=== PATIENT | male | born 1995 | race Caucasian/White ===

== ENCOUNTER 2018-02-02 15:45 | Inpatient (IN) | payer OTHER ==
--- NOTE | 2018-02-02 16:07 | ED ---
General Adult HPI - General Stated complaint: Abd.pain/vomiting Time Seen by Provider: 02/02/18 15:52 - History of Present Illness Initial comments: Mack Vinson is a 22-year-old morbidly obese male who presents to the ED from an outside facility for further management of acute DKA. Patient reports that for the past week he's been experiencing severe nausea, vomiting and inability tolerate any by mouth intake. Patient states that he's been feeling very thirsty but any time he drinks he vomits. He reports that today his mother became concerned because it had been a week of the symptoms so she called 911 and he was taken to an outside facility. Patient reports epigastric abdominal discomfort, no other abdominal pain. He denies any recent fevers, chills, chest pain or trouble breathing. He does not have a primary care physician, doesn't follow with a physician regularly and has no known medical diagnoses prior to today. Evaluation at the outside hospital revealed that he had an anion gap of 31, serum bicarb of 9, blood glucose of 388, a blood gas was not obtained but the diagnosis of DKA was made. 3.5 L of IV fluid were given and the patient was transferred to our facility via ambulance. - Related Data Home Medications Medication Instructions Recorded Confirmed No Known Home Medications [No 02/02/18 02/02/18 Known Home Medications] Allergies Allergy/AdvReac Type Severity Reaction Status Date / Time Penicillins Allergy Rash/Hives Verified 02/02/18 16:07 Review of Systems ROS Statement: Those systems with pertinent positive or pertinent negative responses have been documented in the HPI. ROS Other: All systems not noted in ROS Statement are negative. Constitutional: Reports: weakness Eyes: Denies: vision change ENT: Reports: other (dry mouth) Respiratory: Denies: dyspnea Cardiovascular: Denies: chest pain, palpitations Endocrine: Reports: fatigue Gastrointestinal: Reports: abdominal pain, nausea, vomiting Genitourinary: Reports: other (urine decreased). Denies: urgency, dysuria Musculoskeletal: Denies: back pain Skin: Denies: rash, lesions Neurological: Denies: headache, weakness Psychiatric: Denies: anxiety, depression Hematological/Lymphatic: Denies: easy bleeding, easy bruising General Exam Limitations: no limitations General appearance: alert, obese Head exam: Present: atraumatic, normocephalic Eye exam: Present: PERRL ENT exam: Present: other (dry mucous membranes) Neck exam: Present: normal inspection Respiratory exam: Present: other (Kussmal respirations) Cardiovascular Exam: Present: regular rate, tachycardia GI/Abdominal exam: Present: soft. Absent: distended, tenderness Rectal exam: Present: deferred Extremities exam: Present: other Neurological exam: Present: alert, oriented X3 Psychiatric exam: Present: normal affect, normal mood Skin exam: Present: mottled (upper extremities) Course Vital Signs 02/02/18 02/02/18 02/02/18 15:50 17:53 20:00 Temperature 97.9 F Pulse Rate 110 H 102 H 110 H Respiratory 20 20 17 Rate Blood Pressure 164/90 159/85 156/78 O2 Sat by Pulse 100 100 100 Oximetry Medical Decision Making - Medical Decision Making Patient was seen and evaluated, vital signs were reviewed. Patient is tachycardic and afebrile Patient is noted to be tachypneic, on evaluation he has small respirations History is obtained from the patient and review of outside medical record Outside labs were reviewed - anion gap 31, serum bicarb 9, glucose 388 Troponin, lipase were both negative at outside lab. Lactic acid was not drawn. CBC was significant for mild leukocytosis and a hemoglobin of 18 just likely hemoconcentration Metabolic panel was reviewed, no significant abnormalities, potassium was 4.1 The patient receives 3.5 L of normal saline prior to arrival in our emergency department Initial labs were drawn at 11:20 AM, repeat labs to be drawn at this time. Repeat labs again consistent with DKA Additional IVF ordered Patient care discussed with midlevel providers from ICU who accept patient to the ICU for Dr. Worthington care was discussed with medicine on-call Dr Rangel who accepts the patient to her service with a consult to ICU for management - Lab Data Result diagrams: 02/02/18 16:06 02/02/18 20:13 Lab Results 02/02/18 02/02/18 02/02/18 Range/Units 16:06 16:06 16:06 WBC 17.3 H (3.8-10.6) k/uL RBC 5.82 (4.30-5.90) m/uL Hgb 16.2 (13.0-17.5) gm/dL Hct 48.2 (39.0-53.0) % MCV 82.9 (80.0-100.0) fL MCH 27.8 (25.0-35.0) pg MCHC 33.5 (31.0-37.0) g/dL RDW 13.9 (11.5-15.5) % Plt Count 241 (150-450) k/uL Neutrophils % 82 % Lymphocytes % 11 % Monocytes % 6 % Eosinophils % 0 % Basophils % 0 % Neutrophils # 14.2 H (1.3-7.7) k/uL Lymphocytes # 1.8 (1.0-4.8) k/uL Monocytes # 1.0 (0-1.0) k/uL Eosinophils # 0.1 (0-0.7) k/uL Basophils # 0.0 (0-0.2) k/uL VBG pH (7.31-7.41) VBG pCO2 (37-51) mmHg VBG HCO3 (24-28) mmol/L Sodium 147 H (137-145) mmol/L Potassium 3.9 (3.5-5.1) mmol/L Chloride 115 H (98-107) mmol/L Carbon Dioxide <5 L* (22-30) mmol/L Anion Gap mmol/L BUN 6 L (9-20) mg/dL Creatinine 0.70 (0.66-1.25) mg/dL Est GFR (CKD-EPI)AfAm >90 (>60 ml/min/1.73 sqM) Est GFR (CKD-EPI)NonAf >90 (>60 ml/min/1.73 sqM) Glucose 287 H (74-99) mg/dL POC Glucose (mg/dL) (75-99) mg/dL POC Glu Byproducts Maker ID Osmolality 320 H (280-301) mosm/kg Plasma Lactic Acid Miki 1.3 (0.7-2.0) mmol/L Calcium 8.7 (8.4-10.2) mg/dL Phosphorus 2.9 (2.5-4.5) mg/dL Magnesium 1.8 (1.6-2.3) mg/dL Total Bilirubin 0.5 (0.2-1.3) mg/dL AST 41 (17-59) U/L ALT 63 (21-72) U/L Alkaline Phosphatase 136 H (38-126) U/L Total Protein 7.3 (6.3-8.2) g/dL Albumin 4.1 (3.5-5.0) g/dL Acetone, Qual Positive (Negative) 02/02/18 02/02/18 02/02/18 Range/Units 16:37 16:50 17:50 WBC (3.8-10.6) k/uL RBC (4.30-5.90) m/uL Hgb (13.0-17.5) gm/dL Hct (39.0-53.0) % MCV (80.0-100.0) fL MCH (25.0-35.0) pg MCHC (31.0-37.0) g/dL RDW (11.5-15.5) % Plt Count (150-450) k/uL Neutrophils % % Lymphocytes % % Monocytes % % Eosinophils % % Basophils % % Neutrophils # (1.3-7.7) k/uL Lymphocytes # (1.0-4.8) k/uL Monocytes # (0-1.0) k/uL Eosinophils # (0-0.7) k/uL Basophils # (0-0.2) k/uL VBG pH 7.05 L* (7.31-7.41) VBG pCO2 30 L (37-51) mmHg VBG HCO3 8 L* (24-28) mmol/L Sodium (137-145) mmol/L Potassium (3.5-5.1) mmol/L Chloride (98-107) mmol/L Carbon Dioxide (22-30) mmol/L Anion Gap mmol/L BUN (9-20) mg/dL Creatinine (0.66-1.25) mg/dL Est GFR (CKD-EPI)AfAm (>60 ml/min/1.73 sqM) Est GFR (CKD-EPI)NonAf (>60 ml/min/1.73 sqM) Glucose (74-99) mg/dL POC Glucose (mg/dL) 290 H 268 H (75-99) mg/dL POC Glu Byproducts Maker ID Rasheeda Rudolph Katie Osmolality (280-301) mosm/kg Plasma Lactic Acid Miki (0.7-2.0) mmol/L Calcium (8.4-10.2) mg/dL Phosphorus (2.5-4.5) mg/dL Magnesium (1.6-2.3) mg/dL Total Bilirubin (0.2-1.3) mg/dL AST (17-59) U/L ALT (21-72) U/L Alkaline Phosphatase (38-126) U/L Total Protein (6.3-8.2) g/dL Albumin (3.5-5.0) g/dL Acetone, Qual (Negative) Disposition Clinical Impression: DKA (diabetic ketoacidoses), Newly diagnosed diabetes Disposition: ADMITTED IP TO THIS HOSP Decision Time: 20:47 - Out of Hospital Transfer - Req. Specs Out of Hospital Transfer - Requested Specifics: Medical ICU
[2018-02-02 16:34] LABS: Basophils % (A) 0 %; Eosinophils # (A) 0.1 k/uL (0-0.7); Eosinophils % (A) 0 %; HCT 48.2 % (39.0-53.0); HGB 16.2 gm/dL (13.0-17.5); Lymphocytes # (A) 1.8 k/uL (1.0-4.8); Lymphocytes % (A) 11 %; MCH 27.8 pg (25.0-35.0); MCHC 33.5 g/dL (31.0-37.0); MCV 82.9 fL (80.0-100.0); Monocytes % (A) 6 %; Neutrophils # (A) 14.2 k/uL (1.3-7.7); Neutrophils % (A) 82 %; Platelet Count 241 k/uL (150-450); RBC 5.82 m/uL (4.30-5.90); RDW 13.9 % (11.5-15.5); WBC 17.3 k/uL (3.8-10.6)
[2018-02-02] MEDS ORDERED: ONDANSETRON 4 MG/2 ML VIAL IVP STA (16:40)
[2018-02-02] MEDS ORDERED: FAMOTIDINE 20 MG/2 ML VIAL IV STA (16:40)
[2018-02-02 16:41] LABS: Glucose,Whole Blood 290 mg/dL (75-99)
[2018-02-02] MEDS ORDERED: D5-0.45% NACL WITH KCL 20MEQ/L 1,000 ML IV ONE (16:45)
[2018-02-02] MEDS: SODIUM CHLORIDE 0.9% 1,000 ML IV SCH ×2 (16:51→23:07)
[2018-02-02 16:57] LABS: ALT 63 U/L (21-72); AST 41 U/L (17-59); Albumin 4.1 g/dL (3.5-5.0); Alkaline Phosphatase 136 U/L (38-126); Blood Urea Nitrogen 6 mg/dL (9-20); Calcium 8.7 mg/dL (8.4-10.2); Chloride 115 mmol/L (98-107); Glucose 287 mg/dL (74-99); Magnesium 1.8 mg/dL (1.6-2.3); Phosphorus 2.9 mg/dL (2.5-4.5); Potassium 3.9 mmol/L (3.5-5.1); Sodium 147 mmol/L (137-145); Total Bilirubin 0.5 mg/dL (0.2-1.3); Total Protein 7.3 g/dL (6.3-8.2)
[2018-02-02 16:58] LABS: VBG PH 7.05 (7.31-7.41)
[2018-02-02] MEDS: INSULIN REGULAR 100 UNIT in SODIUM CHLORIDE 0.9% 100 ML IV SCH (17:03)
[2018-02-02 17:28] LABS: Carbon Dioxide <5 mmol/L (22-30)
[2018-02-02] MEDS ORDERED: SODIUM CHLORIDE 0.9% 1,000 ML IV ONE (17:57)
[2018-02-02 17:58] LABS: Glucose,Whole Blood 268 mg/dL (75-99)
[2018-02-02 18:56] LABS: Glucose,Whole Blood 231 mg/dL (75-99)
[2018-02-02 20:05] LABS: Glucose,Whole Blood 215 mg/dL (75-99)
[2018-02-02 20:39] LABS: Blood Urea Nitrogen 5 mg/dL (9-20); Chloride 115 mmol/L (98-107); Glucose 159 mg/dL (74-99); Phosphorus 1.6 mg/dL (2.5-4.5); Potassium 3.4 mmol/L (3.5-5.1); Sodium 147 mmol/L (137-145)
[2018-02-02 20:45] LABS: Anion Gap 23 mmol/L
[2018-02-02 20:46] LABS: Carbon Dioxide 9 mmol/L (22-30)
[2018-02-02 21:01] LABS: Glucose,Whole Blood 162 mg/dL (75-99)
[2018-02-02] MEDS ORDERED: Potassium Replacement Protocol 1 EACH MISC MISCELLANE PRN (21:01)
[2018-02-02] MEDS ORDERED: Magnesium Replacement Protocol 1 EACH MISC MISCELLANE PRN (21:01)
[2018-02-02] MEDS ORDERED: NALOXONE 0.4 MG/ML 1 ML VIAL IV PRN (21:05)
[2018-02-02] MEDS ORDERED: ALPRAZolam 0.25 MG TAB PO PRN (21:05)
[2018-02-02] MEDS ORDERED: DOCUSATE 100 MG CAP PO PRN (21:05)
[2018-02-02] MEDS ORDERED: ACETAMINOPHEN TAB 325 MG TAB PO PRN (21:05)
--- NOTE | 2018-02-02 21:08 | P.HPIM ---
History of Present Illness H&P Date: 02/02/18 Chief Complaint: vomiting Patient is a 22-year-old male with a past medical history of morbid obesity who initially presented to [facility] with complaints of vomiting and abdominal pain. He underwent an extensive evaluation there. He was found to have DKA. He was given 3 L of IV fluids. He underwent a CT chest , abdomen, and pelvis which showed no acute process. He was transferred here for further monitoring and care. In the ER he was found to have a VBG with a pH of 7.05 and a bicarb of 8. Laboratory analysis again was consistent with DKA with a positive acetone, anion gap unable to be measured, and a blood sugar of 287. His given an additional liter of fluid. He was started on an insulin drip and placed on D5 half-normal saline with potassium. Dr. Worthington's group was spoke with and he will be admitted to the ICU. Patient seen and examined at bedside in the ER. He states that he started vomiting approximately one week ago. He was unable to hold any significant amounts of food or liquid down. He also had some diffuse abdominal pain which he is unable to quantify or describe for me but just states that it "aches". He also was having constipation with no bowel movement in 1 week. He did an [id number] laxative without relief. He states that he has had increased urinary frequency over the last 2 weeks. Every time he urinates but is only a small amount amount and he denies any dysuria. He also complains of increased thirst over the last 2 weeks. He states his appetite has been normal but he has lost approximately 50 pounds over 2 weeks' period of time. He states that he was working a lot outside. He has no personal history of diabetes but his mom is in insulin dependent diabetic. He would like to follow with her nurse practitioner on discharge which is Connie Bahena. He has not been hospitalized recently. He does not take any medications on a daily basis. He has not started or stopped any supplements. He denies any chest pain, shortness of breath, lightheadedness or dizziness, cough, cold, fever or flu. Review of Systems Positive: Vomiting, abdominal pain, urinary frequency, increased thirst Pertinent positives and negatives as discussed in HPI, a complete review of systems was performed and all other systems are negative. 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 No significant issues noted on an osteopathic structural exam other than those noted in the History and Physical/Consult. Vitals: Vital Signs Temp Pulse Resp BP Pulse Ox 02/02/18 20:00 110 H 17 156/78 100 02/02/18 17:53 102 H 20 159/85 100 02/02/18 15:50 97.9 F 110 H 20 164/90 100 Intake and Output 02/02/18 02/02/18 02/02/18 06:59 14:59 22:59 Intake Total 52.593 Balance 52.593 Intake: Intake, IV Titration 52.593 Amount Insulin Regular 100 unit 52.593 In Sodium Chloride 0.9% 100 ml @ 0.1 UNITS/KG/HR 16.58 mls/hr IV .Q6H6M [facility] Rx#:[id number] Other: Weight 164.2 kg General: non toxic, mild distress, appears at stated age, morbidly obese Derm: Multiple scratches over bilateral lower extremities no unusual ecchymoses , warm, dry Head: atraumatic, normocephalic, symmetric Eyes: EOMI, no lid lag, anicteric sclera, pupils equal round reactive to light ENT: Nose and ears atraumatic, no thrush, no pharyngeal erythema, poor dentition Neck: No thyromegaly, no cervical lymphadenopathy, trachea midline, supple Mouth: no lip lesion, dry mucous membranes Cardiovascular: S1S2 reg, no murmur, positive posterior tibial pulse bilateral, no edema, capillary refill less than 2 seconds Lungs: Decreased breath sounds bilaterally, no rhonchi, no rales , no accessory muscle use Abdominal: soft, nontender to palpation, no guarding, no appreciable organomegaly, normal bowel sounds Ext: no gross muscle atrophy, muscle strength 5 out of 5 in all 4 extremities grossly, no contractures, Neuro: CN II-XI grossly intact, light touch intact all 4 extremities, finger to nose within normal limits, Psych: Alert, oriented, flat affect Results CBC & Chem 7: 02/02/18 16:06 02/02/18 20:13 Labs: Abnormal Lab Results - Last 24 Hours (Table) 02/02/18 02/02/18 02/02/18 Range/Units 16:06 16:06 16:37 WBC 17.3 H (3.8-10.6) k/uL Neutrophils # 14.2 H (1.3-7.7) k/uL VBG pH (7.31-7.41) VBG pCO2 (37-51) mmHg VBG HCO3 (24-28) mmol/L Sodium 147 H (137-145) mmol/L Potassium (3.5-5.1) mmol/L Chloride 115 H (98-107) mmol/L Carbon Dioxide <5 L* (22-30) mmol/L BUN 6 L (9-20) mg/dL Glucose 287 H (74-99) mg/dL POC Glucose (mg/dL) 290 H (75-99) mg/dL Osmolality 320 H (280-301) mosm/kg Phosphorus (2.5-4.5) mg/dL Alkaline Phosphatase 136 H (38-126) U/L 02/02/18 02/02/18 02/02/18 Range/Units 16:50 17:50 18:55 WBC (3.8-10.6) k/uL Neutrophils # (1.3-7.7) k/uL VBG pH 7.05 L* (7.31-7.41) VBG pCO2 30 L (37-51) mmHg VBG HCO3 8 L* (24-28) mmol/L Sodium (137-145) mmol/L Potassium (3.5-5.1) mmol/L Chloride (98-107) mmol/L Carbon Dioxide (22-30) mmol/L BUN (9-20) mg/dL Glucose (74-99) mg/dL POC Glucose (mg/dL) 268 H 231 H (75-99) mg/dL Osmolality (280-301) mosm/kg Phosphorus (2.5-4.5) mg/dL Alkaline Phosphatase (38-126) U/L 02/02/18 02/02/18 Range/Units 20:03 20:13 WBC (3.8-10.6) k/uL Neutrophils # (1.3-7.7) k/uL VBG pH (7.31-7.41) VBG pCO2 (37-51) mmHg VBG HCO3 (24-28) mmol/L Sodium 147 H (137-145) mmol/L Potassium 3.4 L (3.5-5.1) mmol/L Chloride 115 H (98-107) mmol/L Carbon Dioxide 9 L* (22-30) mmol/L BUN 5 L (9-20) mg/dL Glucose 159 H (74-99) mg/dL POC Glucose (mg/dL) 215 H (75-99) mg/dL Osmolality (280-301) mosm/kg Phosphorus 1.6 L (2.5-4.5) mg/dL Alkaline Phosphatase (38-126) U/L Comments: EKG is reviewed by myself reveals sinus tachycardia at a rate of 110, normal axis, normal intervals, and no significant ST-T wave changes CT scan - abdomen: report reviewed CT scan - chest: report reviewed CT scan - pelvis: report reviewed Thrombosis Risk Factor Assmnt - DVT/VTE Prophylaxis DVT/VTE Prophylaxis: Pharmacologic Prophylaxis ordered Assessment and Plan Assessment: DKA with new onset diabetes -DKA protocol with insulin drip, IV fluids, and serial lytes/phosphorus/ magnesium -Capillary blood glucose every hour -Nothing by mouth except for ice chips -family living educator and dietitan consult Hypernatremia, due to dehydration -follow serial lytes - IV fluids Leukocytosis, likely reactive - CT chest, abd and plevis normal - follow CBC - monior for temperature - check UA , initial at outside hospital was negative. Morbid Obesity, BMI 49.1 - Continued outpatient weight loss Social stressors - no insurance - social work consult - will either need indigent funds at discharge or to be placed on rely-on R and rely-on N through [employer], will need Rx for needles/syringes as these are vials , DVT prophylaxis: Lovenox Discussed with: Patient, ED physician, ED nursing Anticipated discharge: 3-[address]: Home A total of 65 minutes was spent on the care of this complex patient more than 50 % of the time was spent in counseling and care coordination.
[2018-02-02 21:47] LABS: Glucose,Whole Blood 146 mg/dL (75-99)
[2018-02-02] MEDS: SODIUM PHOSPHATE 10 MMOL in SODIUM CHLORIDE 0.9% 250 ML IVPB SCH (23:07)
[2018-02-02] MEDS: POTASSIUM PHOSPHATE 10 MMOL in SODIUM CHLORIDE 0.9% 250 ML IV SCH (23:08)
[2018-02-02 23:19] LABS: Glucose,Whole Blood 154 mg/dL (75-99)
[2018-02-02 23:54] LABS: Glucose,Whole Blood 163 mg/dL (75-99)
[2018-02-03] MEDS: INSULIN REGULAR 100 UNIT in SODIUM CHLORIDE 0.9% 100 ML IV SCH ×5 (00:10→23:53)
[2018-02-03] MEDS: D5-0.45% NACL WITH KCL 20MEQ/L 1,000 ML IV SCH ×4 (00:12→20:03)
[2018-02-03] MEDS: SODIUM CHLORIDE 0.9% 1,000 ML IV SCH ×3 (00:14→13:31)
[2018-02-03 00:34] LABS: Anion Gap 23 mmol/L; Blood Urea Nitrogen 5 mg/dL (9-20); Chloride 116 mmol/L (98-107); Glucose 183 mg/dL (74-99); Phosphorus 1.9 mg/dL (2.5-4.5); Potassium 4.4 mmol/L (3.5-5.1); Sodium 145 mmol/L (137-145)
[2018-02-03 00:42] LABS: Carbon Dioxide 6 mmol/L (22-30)
[2018-02-03] MEDS: POTASSIUM PHOSPHATE 10 MMOL in SODIUM CHLORIDE 0.9% 250 ML IV SCH ×5 (00:56→12:41)
[2018-02-03 01:00] LABS: Glucose,Whole Blood 186 mg/dL (75-99)
[2018-02-03 01:01] LABS: Appearance,Urine Clear (Clear); Bacteria,Urine Rare /hpf; Bilirubin,Urine 1+ (Negative); Blood,Urine Small (Negative); Color,Urine Yellow; Glucose,Urine (UA) 3+ (Negative); Hyaline Casts,Urine 131 /lpf (0-2); Leukocyte Esterase,Urine Negative (Negative); Mucus,Urine Rare /hpf; Nitrite,Urine Negative (Negative); Protein,Urine 2+ (Negative); RBC,Urine <1 /hpf (0-5); Specific Gravity,Urine 1.019 (1.001-1.035); Squamous Epithelial Cell,Urine 1 /hpf (0-4); WBC,Urine 4 /hpf (0-5)
[2018-02-03 01:04] LABS: Ketones,Urine 4+ (Negative)
[2018-02-03 02:10] LABS: Glucose,Whole Blood 193 mg/dL (75-99)
[2018-02-03 02:25] LABS: Hemoglobin A1C 11.8 % (4.0-6.0)
[2018-02-03 02:59] LABS: Glucose,Whole Blood 187 mg/dL (75-99)
[2018-02-03 04:27] LABS: Glucose,Whole Blood 187 mg/dL (75-99)
[2018-02-03 04:29] LABS: Basophils % (A) 0 %; Eosinophils # (A) 0.3 k/uL (0-0.7); Eosinophils % (A) 2 %; Lymphocytes # (A) 2.7 k/uL (1.0-4.8); Lymphocytes % (A) 23 %; MCH 27.4 pg (25.0-35.0); MCHC 33.4 g/dL (31.0-37.0); MCV 81.9 fL (80.0-100.0); Monocytes # (A) 0.7 k/uL (0-1.0); Monocytes % (A) 6 %; Neutrophils # (A) 7.8 k/uL (1.3-7.7); Neutrophils % (A) 67 %; Platelet Count 191 k/uL (150-450); RBC 5.49 m/uL (4.30-5.90); RDW 14.1 % (11.5-15.5); WBC 11.7 k/uL (3.8-10.6)
[2018-02-03 04:41] LABS: Anion Gap 19 mmol/L; Blood Urea Nitrogen 5 mg/dL (9-20); Calcium 9.1 mg/dL (8.4-10.2); Carbon Dioxide 11 mmol/L (22-30); Chloride 114 mmol/L (98-107); Glucose 197 mg/dL (74-99); Magnesium 1.9 mg/dL (1.6-2.3); Phosphorus 1.6 mg/dL (2.5-4.5); Potassium 3.1 mmol/L (3.5-5.1); Sodium 144 mmol/L (137-145)
[2018-02-03] MEDS ORDERED: Phosphorus Replacement Protoco 1 EACH MISC MISCELLANE PRN (04:51)
[2018-02-03 05:19] LABS: Glucose,Whole Blood 202 mg/dL (75-99)
[2018-02-03] MEDS: POTASSIUM CHLORIDE ER 20 MEQ TAB.ER PO SCH ×5 (05:46→20:03)
[2018-02-03 06:18] LABS: Glucose,Whole Blood 162 mg/dL (75-99)
[2018-02-03 07:03] LABS: Glucose,Whole Blood 156 mg/dL (75-99)
[2018-02-03] MEDS: MAGNESIUM SULFATE-D5W PMX 1 GM in DEXTROSE/WATER 1 100ML.BAG IVPB SCH ×2 (07:09→08:58)
[2018-02-03 07:58] LABS: Glucose,Whole Blood 159 mg/dL (75-99)
[2018-02-03 08:06] LABS: Glucose,Whole Blood 157 mg/dL (75-99)
[2018-02-03] MEDS: ENOXAPARIN 40 MG/0.4 ML SYRINGE SQ SCH (08:58)
[2018-02-03] MEDS: PANTOPRAZOLE 40 MG TABLET PO SCH (08:59)
[2018-02-03 09:08] LABS: Glucose,Whole Blood 154 mg/dL (75-99)
[2018-02-03 09:13] LABS: Anion Gap 18 mmol/L; Blood Urea Nitrogen 5 mg/dL (9-20); Carbon Dioxide 13 mmol/L (22-30); Chloride 115 mmol/L (98-107); Glucose 165 mg/dL (74-99); Phosphorus 1.6 mg/dL (2.5-4.5); Potassium 3.1 mmol/L (3.5-5.1); Sodium 146 mmol/L (137-145)
[2018-02-03] MEDS ORDERED: POTASSIUM CHLORIDE ER 20 MEQ TAB.ER PO SCH (10:00)
[2018-02-03 10:02] LABS: Glucose,Whole Blood 166 mg/dL (75-99)
[2018-02-03 11:02] LABS: Glucose,Whole Blood 137 mg/dL (75-99)
[2018-02-03 12:04] LABS: Glucose,Whole Blood 148 mg/dL (75-99)
[2018-02-03 12:53] LABS: Anion Gap 15 mmol/L; Blood Urea Nitrogen 4 mg/dL (9-20); Carbon Dioxide 13 mmol/L (22-30); Chloride 114 mmol/L (98-107); Glucose 162 mg/dL (74-99); Phosphorus 1.8 mg/dL (2.5-4.5); Sodium 142 mmol/L (137-145)
[2018-02-03 13:13] LABS: Glucose,Whole Blood 159 mg/dL (75-99)
[2018-02-03 13:22] LABS: Potassium 4.2 mmol/L (3.5-5.1)
[2018-02-03 14:23] LABS: Glucose,Whole Blood 256 mg/dL (75-99)
--- NOTE | 2018-02-03 14:40 | P.CNPUL ---
History of Present Illness Consult date: 02/03/18 Requesting physician: Mimi Rodriguez Reason for consult: other (Critical care management) Chief complaint: Nausea, vomiting History of present illness: This is a very pleasant 22-year-old gentleman with no primary care physician. No past medical history. He is morbidly obese with a BMI of 50.8 kg/m. He had developed nausea and vomiting for 1 week's time. He was unable to keep even water down. Yesterday his mom became concerned and was taken to [facility]. He was found to have new onset diabetes with a blood glucose of 388. He was subsequently transferred here to the emergency room for further evaluation and treatment. His initial glucose was 287. Venous gases revealed a pH of 7.05, CO2 30, bicarbonate of 8. Electrolyte profile revealed sodium 147. Calcium 3.9 chloride 1:15 carbon dioxide less than 5 subsequent anion gap 23. Acetone was positive. He was initiated on the DKA protocol. He was transferred to the intensive care unit. He is seen there today in consultation. He is currently awake and alert in no acute distress. He is maintaining good O2 saturations of 200% on room air. He has not had any further nausea and vomiting. He is not tolerating diet just yet. He remains nothing by mouth. He is currently receiving D5 0.45 with 20 of KCl at 150 MLS per hour. He is on a insulin drip at 11.3 units per hour. Most recent lab results reveal a sodium of 142, potassium 4.2, chloride 114, carbon dioxide 13, anion gap 15. Creatinine is 0.48. Blood glucose 162. He remains on Lovenox for DVT prophylaxis. Protonix for GI prophylaxis. Review of Systems 14 point review of system was conducted. All negative other than as mentioned in HPI. 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 - Past Family History Mother Family Medical History: Diabetes Mellitus, Hypertension Medications and Allergies Home Medications Medication Instructions Recorded Confirmed Type No Known Home Medications [No 02/02/18 02/02/18 History Known Home Medications] Allergies Allergy/AdvReac Type Severity Reaction Status Date / Time Penicillins Allergy Rash/Hives Verified 02/02/18 16:07 Physical Exam Vitals: Vital Signs Temp Pulse Resp BP Pulse Ox 02/03/18 13:00 98.4 F 82 15 159/76 100 02/03/18 12:00 81 18 151/69 100 02/03/18 11:00 93 22 144/69 99 02/03/18 10:00 81 13 155/84 100 02/03/18 09:00 98 F 84 17 166/68 99 02/03/18 08:00 86 20 166/80 98 02/03/18 07:00 86 17 161/72 100 02/03/18 06:30 87 17 161/72 100 02/03/18 06:00 86 18 173/73 100 02/03/18 05:30 83 20 162/59 99 02/03/18 05:00 86 21 151/70 98 02/03/18 04:30 86 18 151/70 99 02/03/18 04:00 98.6 F 81 20 148/63 100 02/03/18 03:30 91 16 148/63 100 02/03/18 03:00 84 18 141/72 100 02/03/18 02:30 85 21 141/72 98 02/03/18 02:00 88 23 148/66 99 02/03/18 01:30 89 22 148/66 99 02/03/18 01:00 95 26 H 154/66 99 02/03/18 00:30 94 21 154/66 99 02/03/18 00:00 99.1 F 104 H 23 145/60 100 02/02/18 23:30 97 25 H 145/60 99 02/02/18 23:00 97 24 135/64 98 02/02/18 22:30 95 25 H 135/64 100 02/02/18 22:00 98.1 F 97 19 135/64 100 02/02/18 21:47 108 H 10 L 02/02/18 21:37 98.0 F 02/02/18 21:08 114 H 18 156/78 98 02/02/18 20:00 110 H 17 156/78 100 02/02/18 17:53 102 H 20 159/85 100 02/02/18 15:50 97.9 F 110 H 20 164/90 100 Intake and Output 02/02/18 02/03/18 02/03/18 22:59 06:59 14:59 Intake Total 77.481 3021.401 7224.229 Output Total 500 Balance 77.481 9904.244 0747.229 Intake: IV 1200 1050 D5-0.45% NaCl with KCl 1200 1050 20Meq/l 1,000 ml @ 150 mls/hr IV .Q6H40M [facility] Rx# :[id number] Intake, IV Titration 77.481 674.232 438.229 Amount Insulin Regular 100 unit 77.481 49.232 63.229 In Sodium Chloride 0.9% 100 ml @ 0.1 UNITS/KG/HR 16.58 mls/hr IV .Q6H6M [facility] Rx#:[id number] Potassium Phosphate 10 500 mmol In Sodium Chloride 0 .9% 250 ml @ 125 mls/hr IV Q2H [facility] Rx#:[id number] Potassium Phosphate 10 125 125 mmol In Sodium Chloride 0 .9% 250 ml @ 125 mls/hr IV Q2H [facility] Rx#:[id number] Potassium Phosphate 10 250 mmol In Sodium Chloride 0 .9% 250 ml @ 125 mls/hr IV Q2H [facility] Rx#:[id number] Output: Urine 500 Other: Voiding Method Urinal Toilet # Voids 1 Weight 164.2 kg 169.8 kg GENERAL EXAM: Morbidly obese. Alert, comfortable in no apparent distress. HEAD: Normocephalic. EYES: Normal reaction of pupils, equal size. NOSE: Clear with pink turbinates. THROAT: No erythema or exudates. NECK: No masses, no JVD. CHEST: No chest wall deformity. LUNGS: Equal air entry with no crackles, wheeze, rhonchi or dullness. CVS: S1 and S2 normal with no audible murmur, regular rhythm. ABDOMEN: No hepatosplenomegaly, normal bowel sounds, no guarding or rigidity. SPINE: No scoliosis or deformity SKIN: No rashes CENTRAL NERVOUS SYSTEM: No focal deficits, tone is normal in all 4 extremities. EXTREMITIES: There is no peripheral edema. No clubbing, no cyanosis. Peripheral pulses are intact. Results - Laboratory Findings CBC and BMP: 02/03/18 04:04 02/03/18 12:25 Abnormal lab findings: Abnormal Labs 02/02/18 02/02/18 02/02/18 16:06 16:06 16:06 WBC 17.3 H Neutrophils # 14.2 H VBG pH VBG pCO2 VBG HCO3 Sodium 147 H Potassium Chloride 115 H Carbon Dioxide <5 L* BUN 6 L Creatinine Glucose 287 H POC Glucose (mg/dL) Hemoglobin A1c 11.8 H Osmolality 320 H Phosphorus Alkaline Phosphatase 136 H Urine Protein Urine Glucose (UA) Urine Ketones Urine Blood Urine Bilirubin Urine Bacteria Hyaline Casts Urine Mucus 02/02/18 02/02/18 02/02/18 16:37 16:50 17:50 WBC Neutrophils # VBG pH 7.05 L* VBG pCO2 30 L VBG HCO3 8 L* Sodium Potassium Chloride Carbon Dioxide BUN Creatinine Glucose POC Glucose (mg/dL) 290 H 268 H Hemoglobin A1c Osmolality Phosphorus Alkaline Phosphatase Urine Protein Urine Glucose (UA) Urine Ketones Urine Blood Urine Bilirubin Urine Bacteria Hyaline Casts Urine Mucus 02/02/18 02/02/18 02/02/18 18:55 20:03 20:13 WBC Neutrophils # VBG pH VBG pCO2 VBG HCO3 Sodium 147 H Potassium 3.4 L Chloride 115 H Carbon Dioxide 9 L* BUN 5 L Creatinine Glucose 159 H POC Glucose (mg/dL) 231 H 215 H Hemoglobin A1c Osmolality Phosphorus 1.6 L Alkaline Phosphatase Urine Protein Urine Glucose (UA) Urine Ketones Urine Blood Urine Bilirubin Urine Bacteria Hyaline Casts Urine Mucus 02/02/18 02/02/18 02/02/18 20:58 21:46 23:09 WBC Neutrophils # VBG pH VBG pCO2 VBG HCO3 Sodium Potassium Chloride Carbon Dioxide BUN Creatinine Glucose POC Glucose (mg/dL) 162 H 146 H 154 H Hemoglobin A1c Osmolality Phosphorus Alkaline Phosphatase Urine Protein Urine Glucose (UA) Urine Ketones Urine Blood Urine Bilirubin Urine Bacteria Hyaline Casts Urine Mucus 02/02/18 02/03/18 02/03/18 23:53 00:16 00:42 WBC Neutrophils # VBG pH VBG pCO2 VBG HCO3 Sodium Potassium Chloride 116 H Carbon Dioxide 6 L* BUN 5 L Creatinine 0.60 L Glucose 183 H POC Glucose (mg/dL) 163 H Hemoglobin A1c Osmolality Phosphorus 1.9 L Alkaline Phosphatase Urine Protein 2+ H Urine Glucose (UA) 3+ H Urine Ketones 4+ H Urine Blood Small H Urine Bilirubin 1+ H Urine Bacteria Rare H Hyaline Casts 131 H Urine Mucus Rare H 02/03/18 02/03/18 02/03/18 00:58 02:07 02:58 WBC Neutrophils # VBG pH VBG pCO2 VBG HCO3 Sodium Potassium Chloride Carbon Dioxide BUN Creatinine Glucose POC Glucose (mg/dL) 186 H 193 H 187 H Hemoglobin A1c Osmolality Phosphorus Alkaline Phosphatase Urine Protein Urine Glucose (UA) Urine Ketones Urine Blood Urine Bilirubin Urine Bacteria Hyaline Casts Urine Mucus 02/03/18 02/03/18 02/03/18 04:04 04:04 04:25 WBC 11.7 H Neutrophils # 7.8 H VBG pH VBG pCO2 VBG HCO3 Sodium Potassium 3.1 L Chloride 114 H Carbon Dioxide 11 L BUN 5 L Creatinine 0.60 L Glucose 197 H POC Glucose (mg/dL) 187 H Hemoglobin A1c Osmolality Phosphorus 1.6 L Alkaline Phosphatase Urine Protein Urine Glucose (UA) Urine Ketones Urine Blood Urine Bilirubin Urine Bacteria Hyaline Casts Urine Mucus 02/03/18 02/03/18 02/03/18 05:06 06:17 07:02 WBC Neutrophils # VBG pH VBG pCO2 VBG HCO3 Sodium Potassium Chloride Carbon Dioxide BUN Creatinine Glucose POC Glucose (mg/dL) 202 H 162 H 156 H Hemoglobin A1c Osmolality Phosphorus Alkaline Phosphatase Urine Protein Urine Glucose (UA) Urine Ketones Urine Blood Urine Bilirubin Urine Bacteria Hyaline Casts Urine Mucus 02/03/18 02/03/18 02/03/18 07:57 08:04 08:08 WBC Neutrophils # VBG pH VBG pCO2 VBG HCO3 Sodium 146 H Potassium 3.1 L Chloride 115 H Carbon Dioxide 13 L BUN 5 L Creatinine 0.50 L Glucose 165 H POC Glucose (mg/dL) 159 H 157 H Hemoglobin A1c Osmolality Phosphorus 1.6 L Alkaline Phosphatase Urine Protein Urine Glucose (UA) Urine Ketones Urine Blood Urine Bilirubin Urine Bacteria Hyaline Casts Urine Mucus 02/03/18 02/03/18 02/03/18 09:06 10:00 11:00 WBC Neutrophils # VBG pH VBG pCO2 VBG HCO3 Sodium Potassium Chloride Carbon Dioxide BUN Creatinine Glucose POC Glucose (mg/dL) 154 H 166 H 137 H Hemoglobin A1c Osmolality Phosphorus Alkaline Phosphatase Urine Protein Urine Glucose (UA) Urine Ketones Urine Blood Urine Bilirubin Urine Bacteria Hyaline Casts Urine Mucus 02/03/18 02/03/18 02/03/18 12:03 12:25 13:12 WBC Neutrophils # VBG pH VBG pCO2 VBG HCO3 Sodium Potassium Chloride 114 H Carbon Dioxide 13 L BUN 4 L Creatinine 0.48 L Glucose 162 H POC Glucose (mg/dL) 148 H 159 H Hemoglobin A1c Osmolality Phosphorus 1.8 L Alkaline Phosphatase Urine Protein Urine Glucose (UA) Urine Ketones Urine Blood Urine Bilirubin Urine Bacteria Hyaline Casts Urine Mucus Assessment and Plan Assessment: Impression: #1 Diabetic ketoacidosis with new onset diabetes mellitus. #2 Anion gap lactic acidosis secondary to above. Acetone positive. Improved. #3 Hypernatremia secondary to dehydration. Recovered #4 Gastroparesis with nausea and vomiting secondary to above #5 Morbid obesity with a BMI of 50.8 kg/m Plan: The patient was seen and evaluated by Dr. Worthington. The patient is improved and is not having any further nausea and vomiting. His electrolyte disturbances are improving as well. He is on the DKA protocol. Currently on D5 0.45 with 20 KCl at 150 MLS per hour. Continue insulin drip. He could be transferred out of the intensive care unit once his anion gap is closed. He will need further education regarding his new onset diabetes mellitus. He will be transitioned to long-acting insulin with short-acting coverage. We will also need to follow up with a primary care physician closely in the outpatient setting. He is educated her regarding the importance of weight loss and medication compliance. In the interim we'll continue with his current medications. We will continue to follow and make further recommendations based on his clinical status. I, the cosigning physician, performed a history & physical examination of the patient. Lungs sounds are clear. Maintaining good O2 saturations in the 90s on room air. I discussed the assessment and plan of care with my nurse practitioner, Kiersten Calvillo. I attest to the above note as dictated by her. Time with Patient: Greater than 30
[2018-02-03 15:04] LABS: Glucose,Whole Blood 242 mg/dL (75-99)
[2018-02-03 15:08] VITALS: BMI 50.8
[2018-02-03 16:12] LABS: Glucose,Whole Blood 279 mg/dL (75-99)
--- NOTE | 2018-02-03 16:18 | P.PN ---
Subjective Progress Note Date: 02/03/18 Principal diagnosis: Vomiting DKA Symptoms have resolved, no further vomiting. Objective - Vital Signs Vital signs: Vital Signs Temp 98.4 F 02/03/18 13:00 Pulse 88 02/03/18 15:00 Resp 25 H 02/03/18 15:00 BP 170/68 02/03/18 15:00 Pulse Ox 100 02/03/18 15:00 Intake & Output 02/02/18 02/03/18 02/03/18 18:59 06:59 18:59 Intake Total 14.093 8285.028 0945.462 Output Total 500 Balance 14.093 1671.078 9024.462 Weight 164.2 kg 169.8 kg 169.8 kg Intake: IV 1200 1350 D5-0.45% NaCl with KCl 1200 1350 20Meq/l 1,000 ml @ 150 mls/hr IV .Q6H40M [facility] Rx# :[id number] Intake, IV Titration 14.093 737.620 444.462 Amount Insulin Regular 100 unit 14.093 112.620 69.462 In Sodium Chloride 0.9% 100 ml @ 0.1 UNITS/KG/HR 16.58 mls/hr IV .Q6H6M [facility] Rx#:[id number] Potassium Phosphate 10 500 mmol In Sodium Chloride 0 .9% 250 ml @ 125 mls/hr IV Q2H [facility] Rx#:[id number] Potassium Phosphate 10 125 125 mmol In Sodium Chloride 0 .9% 250 ml @ 125 mls/hr IV Q2H [facility] Rx#:[id number] Potassium Phosphate 10 250 mmol In Sodium Chloride 0 .9% 250 ml @ 125 mls/hr IV Q2H [facility] Rx#:[id number] Oral 240 Output: Urine 500 Other: Voiding Method Urinal Toilet # Voids 1 - Exam Constitutional: No acute distress, conversant, pleasant Eyes:Anicteric sclerae, moist conjunctiva, no lid-lag, PERRLA, ENMT: Oropharynx clear, no erythema, exudates Neck: Supple, FROM, no masses, or JVD, No carotid bruits, No thyromegaly Lungs: Clear to auscultation, Clear to percussion, Normal respiratory effort, no accessory muscle use Cardiovascular: Heart regular in rate and rhythm, No murmurs, gallops, or rubs, No peripheral edema Abdominal: Soft, Nontender, no guarding, rebound or rigidity, Normoactive bowel sounds, No hepatomegaly, No splenomegaly, No palpable mass Skin: Normal temperature, tone, texture, turgor, no induration, No subcutaneous nodules, No rash, lesions, No ulcers Extremities: No digital cyanosis, No clubbing, Pedal pulses intact and symmetrical, Radial pulses intact and symmetrical, No calf tenderness Psychiatric: Alert and oriented to person, place and time, appropriate affect, intact judgement Neuro: Muscles Strength 5/5 in all 4 extremities, Sensation to light touch grossly present throughout, Cranial nerves II-XII grossly intact, no focal sensory deficits - Labs CBC & Chem 7: 02/03/18 04:04 02/03/18 12:25 Labs: Abnormal Lab Results - Last 24 Hours (Table) 02/02/18 02/02/18 02/02/18 Range/Units 16:06 16:06 16:06 WBC 17.3 H (3.8-10.6) k/uL Neutrophils # 14.2 H (1.3-7.7) k/uL VBG pH (7.31-7.41) VBG pCO2 (37-51) mmHg VBG HCO3 (24-28) mmol/L Sodium 147 H (137-145) mmol/L Potassium (3.5-5.1) mmol/L Chloride 115 H (98-107) mmol/L Carbon Dioxide <5 L* (22-30) mmol/L BUN 6 L (9-20) mg/dL Creatinine (0.66-1.25) mg/dL Glucose 287 H (74-99) mg/dL POC Glucose (mg/dL) (75-99) mg/dL Hemoglobin A1c 11.8 H (4.0-6.0) % Osmolality 320 H (280-301) mosm/kg Phosphorus (2.5-4.5) mg/dL Alkaline Phosphatase 136 H (38-126) U/L Urine Protein (Negative) Urine Glucose (UA) (Negative) Urine Ketones (Negative) Urine Blood (Negative) Urine Bilirubin (Negative) Urine Bacteria (None) /hpf Hyaline Casts (0-2) /lpf Urine Mucus (None) /hpf 02/02/18 02/02/18 02/02/18 Range/Units 16:37 16:50 17:50 WBC (3.8-10.6) k/uL Neutrophils # (1.3-7.7) k/uL VBG pH 7.05 L* (7.31-7.41) VBG pCO2 30 L (37-51) mmHg VBG HCO3 8 L* (24-28) mmol/L Sodium (137-145) mmol/L Potassium (3.5-5.1) mmol/L Chloride (98-107) mmol/L Carbon Dioxide (22-30) mmol/L BUN (9-20) mg/dL Creatinine (0.66-1.25) mg/dL Glucose (74-99) mg/dL POC Glucose (mg/dL) 290 H 268 H (75-99) mg/dL Hemoglobin A1c (4.0-6.0) % Osmolality (280-301) mosm/kg Phosphorus (2.5-4.5) mg/dL Alkaline Phosphatase (38-126) U/L Urine Protein (Negative) Urine Glucose (UA) (Negative) Urine Ketones (Negative) Urine Blood (Negative) Urine Bilirubin (Negative) Urine Bacteria (None) /hpf Hyaline Casts (0-2) /lpf Urine Mucus (None) /hpf 02/02/18 02/02/18 02/02/18 Range/Units 18:55 20:03 20:13 WBC (3.8-10.6) k/uL Neutrophils # (1.3-7.7) k/uL VBG pH (7.31-7.41) VBG pCO2 (37-51) mmHg VBG HCO3 (24-28) mmol/L Sodium 147 H (137-145) mmol/L Potassium 3.4 L (3.5-5.1) mmol/L Chloride 115 H (98-107) mmol/L Carbon Dioxide 9 L* (22-30) mmol/L BUN 5 L (9-20) mg/dL Creatinine (0.66-1.25) mg/dL Glucose 159 H (74-99) mg/dL POC Glucose (mg/dL) 231 H 215 H (75-99) mg/dL Hemoglobin A1c (4.0-6.0) % Osmolality (280-301) mosm/kg Phosphorus 1.6 L (2.5-4.5) mg/dL Alkaline Phosphatase (38-126) U/L Urine Protein (Negative) Urine Glucose (UA) (Negative) Urine Ketones (Negative) Urine Blood (Negative) Urine Bilirubin (Negative) Urine Bacteria (None) /hpf Hyaline Casts (0-2) /lpf Urine Mucus (None) /hpf 02/02/18 02/02/18 02/02/18 Range/Units 20:58 21:46 23:09 WBC (3.8-10.6) k/uL Neutrophils # (1.3-7.7) k/uL VBG pH (7.31-7.41) VBG pCO2 (37-51) mmHg VBG HCO3 (24-28) mmol/L Sodium (137-145) mmol/L Potassium (3.5-5.1) mmol/L Chloride (98-107) mmol/L Carbon Dioxide (22-30) mmol/L BUN (9-20) mg/dL Creatinine (0.66-1.25) mg/dL Glucose (74-99) mg/dL POC Glucose (mg/dL) 162 H 146 H 154 H (75-99) mg/dL Hemoglobin A1c (4.0-6.0) % Osmolality (280-301) mosm/kg Phosphorus (2.5-4.5) mg/dL Alkaline Phosphatase (38-126) U/L Urine Protein (Negative) Urine Glucose (UA) (Negative) Urine Ketones (Negative) Urine Blood (Negative) Urine Bilirubin (Negative) Urine Bacteria (None) /hpf Hyaline Casts (0-2) /lpf Urine Mucus (None) /hpf 02/02/18 02/03/18 02/03/18 Range/Units 23:53 00:16 00:42 WBC (3.8-10.6) k/uL Neutrophils # (1.3-7.7) k/uL VBG pH (7.31-7.41) VBG pCO2 (37-51) mmHg VBG HCO3 (24-28) mmol/L Sodium (137-145) mmol/L Potassium (3.5-5.1) mmol/L Chloride 116 H (98-107) mmol/L Carbon Dioxide 6 L* (22-30) mmol/L BUN 5 L (9-20) mg/dL Creatinine 0.60 L (0.66-1.25) mg/dL Glucose 183 H (74-99) mg/dL POC Glucose (mg/dL) 163 H (75-99) mg/dL Hemoglobin A1c (4.0-6.0) % Osmolality (280-301) mosm/kg Phosphorus 1.9 L (2.5-4.5) mg/dL Alkaline Phosphatase (38-126) U/L Urine Protein 2+ H (Negative) Urine Glucose (UA) 3+ H (Negative) Urine Ketones 4+ H (Negative) Urine Blood Small H (Negative) Urine Bilirubin 1+ H (Negative) Urine Bacteria Rare H (None) /hpf Hyaline Casts 131 H (0-2) /lpf Urine Mucus Rare H (None) /hpf 02/03/18 02/03/18 02/03/18 Range/Units 00:58 02:07 02:58 WBC (3.8-10.6) k/uL Neutrophils # (1.3-7.7) k/uL VBG pH (7.31-7.41) VBG pCO2 (37-51) mmHg VBG HCO3 (24-28) mmol/L Sodium (137-145) mmol/L Potassium (3.5-5.1) mmol/L Chloride (98-107) mmol/L Carbon Dioxide (22-30) mmol/L BUN (9-20) mg/dL Creatinine (0.66-1.25) mg/dL Glucose (74-99) mg/dL POC Glucose (mg/dL) 186 H 193 H 187 H (75-99) mg/dL Hemoglobin A1c (4.0-6.0) % Osmolality (280-301) mosm/kg Phosphorus (2.5-4.5) mg/dL Alkaline Phosphatase (38-126) U/L Urine Protein (Negative) Urine Glucose (UA) (Negative) Urine Ketones (Negative) Urine Blood (Negative) Urine Bilirubin (Negative) Urine Bacteria (None) /hpf Hyaline Casts (0-2) /lpf Urine Mucus (None) /hpf 02/03/18 02/03/18 02/03/18 Range/Units 04:04 04:04 04:25 WBC 11.7 H (3.8-10.6) k/uL Neutrophils # 7.8 H (1.3-7.7) k/uL VBG pH (7.31-7.41) VBG pCO2 (37-51) mmHg VBG HCO3 (24-28) mmol/L Sodium (137-145) mmol/L Potassium 3.1 L (3.5-5.1) mmol/L Chloride 114 H (98-107) mmol/L Carbon Dioxide 11 L (22-30) mmol/L BUN 5 L (9-20) mg/dL Creatinine 0.60 L (0.66-1.25) mg/dL Glucose 197 H (74-99) mg/dL POC Glucose (mg/dL) 187 H (75-99) mg/dL Hemoglobin A1c (4.0-6.0) % Osmolality (280-301) mosm/kg Phosphorus 1.6 L (2.5-4.5) mg/dL Alkaline Phosphatase (38-126) U/L Urine Protein (Negative) Urine Glucose (UA) (Negative) Urine Ketones (Negative) Urine Blood (Negative) Urine Bilirubin (Negative) Urine Bacteria (None) /hpf Hyaline Casts (0-2) /lpf Urine Mucus (None) /hpf 02/03/18 02/03/18 02/03/18 Range/Units 05:06 06:17 07:02 WBC (3.8-10.6) k/uL Neutrophils # (1.3-7.7) k/uL VBG pH (7.31-7.41) VBG pCO2 (37-51) mmHg VBG HCO3 (24-28) mmol/L Sodium (137-145) mmol/L Potassium (3.5-5.1) mmol/L Chloride (98-107) mmol/L Carbon Dioxide (22-30) mmol/L BUN (9-20) mg/dL Creatinine (0.66-1.25) mg/dL Glucose (74-99) mg/dL POC Glucose (mg/dL) 202 H 162 H 156 H (75-99) mg/dL Hemoglobin A1c (4.0-6.0) % Osmolality (280-301) mosm/kg Phosphorus (2.5-4.5) mg/dL Alkaline Phosphatase (38-126) U/L Urine Protein (Negative) Urine Glucose (UA) (Negative) Urine Ketones (Negative) Urine Blood (Negative) Urine Bilirubin (Negative) Urine Bacteria (None) /hpf Hyaline Casts (0-2) /lpf Urine Mucus (None) /hpf 02/03/18 02/03/18 02/03/18 Range/Units 07:57 08:04 08:08 WBC (3.8-10.6) k/uL Neutrophils # (1.3-7.7) k/uL VBG pH (7.31-7.41) VBG pCO2 (37-51) mmHg VBG HCO3 (24-28) mmol/L Sodium 146 H (137-145) mmol/L Potassium 3.1 L (3.5-5.1) mmol/L Chloride 115 H (98-107) mmol/L Carbon Dioxide 13 L (22-30) mmol/L BUN 5 L (9-20) mg/dL Creatinine 0.50 L (0.66-1.25) mg/dL Glucose 165 H (74-99) mg/dL POC Glucose (mg/dL) 159 H 157 H (75-99) mg/dL Hemoglobin A1c (4.0-6.0) % Osmolality (280-301) mosm/kg Phosphorus 1.6 L (2.5-4.5) mg/dL Alkaline Phosphatase (38-126) U/L Urine Protein (Negative) Urine Glucose (UA) (Negative) Urine Ketones (Negative) Urine Blood (Negative) Urine Bilirubin (Negative) Urine Bacteria (None) /hpf Hyaline Casts (0-2) /lpf Urine Mucus (None) /hpf 02/03/18 02/03/18 02/03/18 Range/Units 09:06 10:00 11:00 WBC (3.8-10.6) k/uL Neutrophils # (1.3-7.7) k/uL VBG pH (7.31-7.41) VBG pCO2 (37-51) mmHg VBG HCO3 (24-28) mmol/L Sodium (137-145) mmol/L Potassium (3.5-5.1) mmol/L Chloride (98-107) mmol/L Carbon Dioxide (22-30) mmol/L BUN (9-20) mg/dL Creatinine (0.66-1.25) mg/dL Glucose (74-99) mg/dL POC Glucose (mg/dL) 154 H 166 H 137 H (75-99) mg/dL Hemoglobin A1c (4.0-6.0) % Osmolality (280-301) mosm/kg Phosphorus (2.5-4.5) mg/dL Alkaline Phosphatase (38-126) U/L Urine Protein (Negative) Urine Glucose (UA) (Negative) Urine Ketones (Negative) Urine Blood (Negative) Urine Bilirubin (Negative) Urine Bacteria (None) /hpf Hyaline Casts (0-2) /lpf Urine Mucus (None) /hpf 02/03/18 02/03/18 02/03/18 Range/Units 12:03 12:25 13:12 WBC (3.8-10.6) k/uL Neutrophils # (1.3-7.7) k/uL VBG pH (7.31-7.41) VBG pCO2 (37-51) mmHg VBG HCO3 (24-28) mmol/L Sodium (137-145) mmol/L Potassium (3.5-5.1) mmol/L Chloride 114 H (98-107) mmol/L Carbon Dioxide 13 L (22-30) mmol/L BUN 4 L (9-20) mg/dL Creatinine 0.48 L (0.66-1.25) mg/dL Glucose 162 H (74-99) mg/dL POC Glucose (mg/dL) 148 H 159 H (75-99) mg/dL Hemoglobin A1c (4.0-6.0) % Osmolality (280-301) mosm/kg Phosphorus 1.8 L (2.5-4.5) mg/dL Alkaline Phosphatase (38-126) U/L Urine Protein (Negative) Urine Glucose (UA) (Negative) Urine Ketones (Negative) Urine Blood (Negative) Urine Bilirubin (Negative) Urine Bacteria (None) /hpf Hyaline Casts (0-2) /lpf Urine Mucus (None) /hpf 02/03/18 02/03/18 02/03/18 Range/Units 14:22 15:03 16:10 WBC (3.8-10.6) k/uL Neutrophils # (1.3-7.7) k/uL VBG pH (7.31-7.41) VBG pCO2 (37-51) mmHg VBG HCO3 (24-28) mmol/L Sodium (137-145) mmol/L Potassium (3.5-5.1) mmol/L Chloride (98-107) mmol/L Carbon Dioxide (22-30) mmol/L BUN (9-20) mg/dL Creatinine (0.66-1.25) mg/dL Glucose (74-99) mg/dL POC Glucose (mg/dL) 256 H 242 H 279 H (75-99) mg/dL Hemoglobin A1c (4.0-6.0) % Osmolality (280-301) mosm/kg Phosphorus (2.5-4.5) mg/dL Alkaline Phosphatase (38-126) U/L Urine Protein (Negative) Urine Glucose (UA) (Negative) Urine Ketones (Negative) Urine Blood (Negative) Urine Bilirubin (Negative) Urine Bacteria (None) /hpf Hyaline Casts (0-2) /lpf Urine Mucus (None) /hpf Assessment and Plan Plan: -Acute DKA/new onset diabetes: Insulin drip Blood sugar checks every 1 hour BMP every 4 Currently AG is at 15 We'll start subcu insulin once gap closes -Morbid obesity: Advised to lose weight, eat healthy diet and exercise Nutrition consult -Essential hypertension: Blood pressure has been elevated since admission Start lisinopril 10 mg daily -DVT prophylaxis: Subcu Lovenox
[2018-02-03 16:19] LABS: Anion Gap 18 mmol/L; Blood Urea Nitrogen 4 mg/dL (9-20); Calcium 8.6 mg/dL (8.4-10.2); Carbon Dioxide 12 mmol/L (22-30); Chloride 110 mmol/L (98-107); Glucose 286 mg/dL (74-99); Phosphorus 1.4 mg/dL (2.5-4.5); Sodium 140 mmol/L (137-145)
[2018-02-03 16:26] LABS: Potassium 2.8 mmol/L (3.5-5.1)
[2018-02-03] MEDS ORDERED: POTASSIUM CHLORIDE ER 20 MEQ TAB.ER PO STA (16:57)
[2018-02-03] MEDS: LISINOPRIL 10 MG TAB PO SCH (17:03)
[2018-02-03 17:07] LABS: Glucose,Whole Blood 283 mg/dL (75-99)
[2018-02-03] MEDS: POTASSIUM CHLORIDE 20 MEQ in WATER FOR INJECTION 1 100ML.BAG IVPB SCH ×2 (17:14→23:50)
[2018-02-03 18:03] LABS: Glucose,Whole Blood 291 mg/dL (75-99)
[2018-02-03] MEDS: SODIUM PHOSPHATE 10 MMOL in SODIUM CHLORIDE 0.9% 250 ML IVPB SCH ×4 (18:06→23:51)
[2018-02-03 19:14] LABS: Glucose,Whole Blood 305 mg/dL (75-99)
[2018-02-03 19:59] LABS: Glucose,Whole Blood 293 mg/dL (75-99)
[2018-02-03 21:05] LABS: Glucose,Whole Blood 293 mg/dL (75-99)
[2018-02-03 21:47] LABS: Anion Gap 19 mmol/L; Blood Urea Nitrogen 5 mg/dL (9-20); Chloride 114 mmol/L (98-107); Glucose 288 mg/dL (74-99); Magnesium 2.1 mg/dL (1.6-2.3); Phosphorus 1.8 mg/dL (2.5-4.5); Potassium 4.2 mmol/L (3.5-5.1); Sodium 143 mmol/L (137-145)
[2018-02-03 21:57] LABS: Carbon Dioxide 10 mmol/L (22-30)
[2018-02-03 22:08] LABS: Glucose,Whole Blood 272 mg/dL (75-99)
[2018-02-03 23:48] LABS: Glucose,Whole Blood 217 mg/dL (75-99)
[2018-02-04 00:41] LABS: Glucose,Whole Blood 202 mg/dL (75-99)
[2018-02-04 01:33] LABS: Glucose,Whole Blood 213 mg/dL (75-99)
[2018-02-04 01:35] LABS: Anion Gap 16 mmol/L; Blood Urea Nitrogen 3 mg/dL (9-20); Calcium 8.6 mg/dL (8.4-10.2); Carbon Dioxide 15 mmol/L (22-30); Chloride 109 mmol/L (98-107); Glucose 210 mg/dL (74-99); Phosphorus 1.7 mg/dL (2.5-4.5); Potassium 3.1 mmol/L (3.5-5.1); Sodium 140 mmol/L (137-145)
[2018-02-04 02:30] LABS: Glucose,Whole Blood 231 mg/dL (75-99)
[2018-02-04 03:28] LABS: Glucose,Whole Blood 197 mg/dL (75-99)
[2018-02-04 04:38] LABS: Glucose,Whole Blood 149 mg/dL (75-99)
[2018-02-04] MEDS: D5-0.45% NACL WITH KCL 20MEQ/L 1,000 ML IV SCH (04:40)
[2018-02-04 05:06] LABS: Basophils % (A) 0 %; Eosinophils # (A) 0.4 k/uL (0-0.7); Eosinophils % (A) 4 %; HCT 43.2 % (39.0-53.0); HGB 15.2 gm/dL (13.0-17.5); Lymphocytes # (A) 2.9 k/uL (1.0-4.8); Lymphocytes % (A) 32 %; MCH 27.7 pg (25.0-35.0); MCHC 35.3 g/dL (31.0-37.0); MCV 78.4 fL (80.0-100.0); Monocytes # (A) 0.5 k/uL (0-1.0); Monocytes % (A) 6 %; Neutrophils # (A) 5.2 k/uL (1.3-7.7); Neutrophils % (A) 57 %; Platelet Count 196 k/uL (150-450); RBC 5.51 m/uL (4.30-5.90); WBC 9.2 k/uL (3.8-10.6)
[2018-02-04 05:15] LABS: Anion Gap 17 mmol/L; Blood Urea Nitrogen 3 mg/dL (9-20); Calcium 9.2 mg/dL (8.4-10.2); Carbon Dioxide 15 mmol/L (22-30); Chloride 109 mmol/L (98-107); Glucose 153 mg/dL (74-99); Phosphorus 1.5 mg/dL (2.5-4.5); Potassium 3.1 mmol/L (3.5-5.1); Sodium 141 mmol/L (137-145)
[2018-02-04 05:59] LABS: Glucose,Whole Blood 175 mg/dL (75-99)
[2018-02-04] MEDS: POTASSIUM PHOSPHATE 10 MMOL in SODIUM CHLORIDE 0.9% 250 ML IV SCH ×4 (06:20→19:13)
[2018-02-04] MEDS: INSULIN REGULAR 100 UNIT in SODIUM CHLORIDE 0.9% 100 ML IV SCH ×7 (06:46→23:59)
[2018-02-04 07:04] LABS: Glucose,Whole Blood 183 mg/dL (75-99)
[2018-02-04] MEDS: DEXTROSE 5% IN WATER 1,000 ML with POTASSIUM CHLORIDE 40 MEQ IV SCH ×4 (08:02→22:01)
[2018-02-04] MEDS: PANTOPRAZOLE 40 MG TABLET PO SCH (08:02)
[2018-02-04 08:03] LABS: Glucose,Whole Blood 220 mg/dL (75-99)
[2018-02-04] MEDS: POTASSIUM CHLORIDE ER 20 MEQ TAB.ER PO SCH ×2 (08:03→08:56)
[2018-02-04] MEDS: LISINOPRIL 10 MG TAB PO SCH (08:03)
[2018-02-04] MEDS: ENOXAPARIN 40 MG/0.4 ML SYRINGE SQ SCH (08:03)
[2018-02-04 09:19] LABS: Glucose,Whole Blood 279 mg/dL (75-99)
[2018-02-04 10:11] LABS: Glucose,Whole Blood 251 mg/dL (75-99)
[2018-02-04 11:14] LABS: Glucose,Whole Blood 243 mg/dL (75-99)
[2018-02-04 11:35] LABS: Anion Gap 17 mmol/L; Blood Urea Nitrogen 3 mg/dL (9-20); Calcium 9.1 mg/dL (8.4-10.2); Carbon Dioxide 17 mmol/L (22-30); Chloride 103 mmol/L (98-107); Glucose 262 mg/dL (74-99); Phosphorus 2.3 mg/dL (2.5-4.5); Potassium 3.6 mmol/L (3.5-5.1); Sodium 137 mmol/L (137-145)
--- NOTE | 2018-02-04 11:58 | P.PN ---
Subjective Progress Note Date: 02/04/18 Principal diagnosis: Vomiting DKA Patient is feeling okay, no nausea, vomiting or abdominal pain. Objective - Vital Signs Vital signs: Vital Signs Temp 98.1 F 02/04/18 08:00 Pulse 95 02/04/18 11:00 Resp 19 02/04/18 11:00 BP 152/76 02/04/18 11:00 Pulse Ox 96 02/04/18 11:00 Intake & Output 02/03/18 02/04/18 02/04/18 18:59 06:59 18:59 Intake Total 3093.037 4419.937 1513.05 Balance 3093.037 4419.937 1513.05 Weight 169.8 kg 172.3 kg Intake: IV 1800 2175 525 D5-0.45% NaCl with KCl 1800 1800 150 20Meq/l 1,000 ml @ 150 mls/hr IV .Q6H40M [facility] Rx# :[id number] Potassium Phosphate 10 125 375 mmol In Sodium Chloride 0 .9% 250 ml @ 125 mls/hr IV Q2H [facility] Rx#:[id number] Sodium Phosphate 10 mmol 250 In Sodium Chloride 0.9% 250 ml @ 125 mls/hr IVPB Q2H [facility] Rx#:[id number] Intake, IV Titration 813.037 444.937 628.05 Amount Dextrose 5% in Water 1, 600 000 ml @ 150 mls/hr IV . Q6H48M [facility] with Potassium Chloride 40 meq Rx#: [id number] Insulin Regular 100 unit 88.037 94.937 28.05 In Sodium Chloride 0.9% 100 ml @ 0.1 UNITS/KG/HR 16.58 mls/hr IV .Q6H6M [facility] Rx#:[id number] Potassium Chloride 20 meq 100 100 In Water For Injection 1 100ml.bag @ 50 mls/hr IVPB Q4HR [facility] Rx#: [id number] Potassium Phosphate 10 125 mmol In Sodium Chloride 0 .9% 250 ml @ 125 mls/hr IV Q2H [facility] Rx#:[id number] Potassium Phosphate 10 250 mmol In Sodium Chloride 0 .9% 250 ml @ 125 mls/hr IV Q2H [facility] Rx#:[id number] Sodium Phosphate 10 mmol 250 250 In Sodium Chloride 0.9% 250 ml @ 125 mls/hr IVPB Q2H [facility] Rx#:[id number] Oral 480 1800 360 Other: Voiding Method Toilet Toilet Toilet # Voids 1 0 0 # Bowel Movements 1 1 - Exam Constitutional: No acute distress, conversant, pleasant Eyes:Anicteric sclerae, moist conjunctiva, no lid-lag, PERRLA, ENMT: Oropharynx clear, no erythema, exudates Neck: Supple, FROM, no masses, or JVD, No carotid bruits, No thyromegaly Lungs: Clear to auscultation, Clear to percussion, Normal respiratory effort, no accessory muscle use Cardiovascular: Heart regular in rate and rhythm, No murmurs, gallops, or rubs, No peripheral edema Abdominal: Soft, Nontender, no guarding, rebound or rigidity, Normoactive bowel sounds, No hepatomegaly, No splenomegaly, No palpable mass Skin: Normal temperature, tone, texture, turgor, no induration, No subcutaneous nodules, No rash, lesions, No ulcers Extremities: No digital cyanosis, No clubbing, Pedal pulses intact and symmetrical, Radial pulses intact and symmetrical, No calf tenderness Psychiatric: Alert and oriented to person, place and time, appropriate affect, intact judgement Neuro: Muscles Strength 5/5 in all 4 extremities, Sensation to light touch grossly present throughout, Cranial nerves II-XII grossly intact, no focal sensory deficits - Labs CBC & Chem 7: 02/04/18 04:51 02/04/18 11:07 Labs: Abnormal Lab Results - Last 24 Hours (Table) 02/03/18 02/03/18 02/03/18 Range/Units 12:03 12:25 13:12 MCV (80.0-100.0) fL Potassium (3.5-5.1) mmol/L Chloride 114 H (98-107) mmol/L Carbon Dioxide 13 L (22-30) mmol/L BUN 4 L (9-20) mg/dL Creatinine 0.48 L (0.66-1.25) mg/dL Glucose 162 H (74-99) mg/dL POC Glucose (mg/dL) 148 H 159 H (75-99) mg/dL Phosphorus 1.8 L (2.5-4.5) mg/dL 02/03/18 02/03/18 02/03/18 Range/Units 14:22 15:03 15:56 MCV (80.0-100.0) fL Potassium 2.8 L* (3.5-5.1) mmol/L Chloride 110 H (98-107) mmol/L Carbon Dioxide 12 L (22-30) mmol/L BUN 4 L (9-20) mg/dL Creatinine 0.64 L (0.66-1.25) mg/dL Glucose 286 H (74-99) mg/dL POC Glucose (mg/dL) 256 H 242 H (75-99) mg/dL Phosphorus 1.4 L (2.5-4.5) mg/dL 02/03/18 02/03/18 02/03/18 Range/Units 16:10 17:06 18:01 MCV (80.0-100.0) fL Potassium (3.5-5.1) mmol/L Chloride (98-107) mmol/L Carbon Dioxide (22-30) mmol/L BUN (9-20) mg/dL Creatinine (0.66-1.25) mg/dL Glucose (74-99) mg/dL POC Glucose (mg/dL) 279 H 283 H 291 H (75-99) mg/dL Phosphorus (2.5-4.5) mg/dL 02/03/18 02/03/18 02/03/18 Range/Units 19:12 19:57 21:03 MCV (80.0-100.0) fL Potassium (3.5-5.1) mmol/L Chloride (98-107) mmol/L Carbon Dioxide (22-30) mmol/L BUN (9-20) mg/dL Creatinine (0.66-1.25) mg/dL Glucose (74-99) mg/dL POC Glucose (mg/dL) 305 H 293 H 293 H (75-99) mg/dL Phosphorus (2.5-4.5) mg/dL 02/03/18 02/03/18 02/03/18 Range/Units 21:17 22:07 23:46 MCV (80.0-100.0) fL Potassium (3.5-5.1) mmol/L Chloride 114 H (98-107) mmol/L Carbon Dioxide 10 L* (22-30) mmol/L BUN 5 L (9-20) mg/dL Creatinine 0.60 L (0.66-1.25) mg/dL Glucose 288 H (74-99) mg/dL POC Glucose (mg/dL) 272 H 217 H (75-99) mg/dL Phosphorus 1.8 L (2.5-4.5) mg/dL 02/04/18 02/04/18 02/04/18 Range/Units 00:39 01:05 01:31 MCV (80.0-100.0) fL Potassium 3.1 L (3.5-5.1) mmol/L Chloride 109 H (98-107) mmol/L Carbon Dioxide 15 L (22-30) mmol/L BUN 3 L (9-20) mg/dL Creatinine 0.50 L (0.66-1.25) mg/dL Glucose 210 H (74-99) mg/dL POC Glucose (mg/dL) 202 H 213 H (75-99) mg/dL Phosphorus 1.7 L (2.5-4.5) mg/dL 02/04/18 02/04/18 02/04/18 Range/Units 02:28 03:26 04:37 MCV (80.0-100.0) fL Potassium (3.5-5.1) mmol/L Chloride (98-107) mmol/L Carbon Dioxide (22-30) mmol/L BUN (9-20) mg/dL Creatinine (0.66-1.25) mg/dL Glucose (74-99) mg/dL POC Glucose (mg/dL) 231 H 197 H 149 H (75-99) mg/dL Phosphorus (2.5-4.5) mg/dL 02/04/18 02/04/18 02/04/18 Range/Units 04:51 04:51 05:57 MCV 78.4 L (80.0-100.0) fL Potassium 3.1 L (3.5-5.1) mmol/L Chloride 109 H (98-107) mmol/L Carbon Dioxide 15 L (22-30) mmol/L BUN 3 L (9-20) mg/dL Creatinine 0.50 L (0.66-1.25) mg/dL Glucose 153 H (74-99) mg/dL POC Glucose (mg/dL) 175 H (75-99) mg/dL Phosphorus 1.5 L (2.5-4.5) mg/dL 02/04/18 02/04/18 02/04/18 Range/Units 07:03 08:01 09:18 MCV (80.0-100.0) fL Potassium (3.5-5.1) mmol/L Chloride (98-107) mmol/L Carbon Dioxide (22-30) mmol/L BUN (9-20) mg/dL Creatinine (0.66-1.25) mg/dL Glucose (74-99) mg/dL POC Glucose (mg/dL) 183 H 220 H 279 H (75-99) mg/dL Phosphorus (2.5-4.5) mg/dL 02/04/18 02/04/18 02/04/18 Range/Units 10:08 11:07 11:12 MCV (80.0-100.0) fL Potassium (3.5-5.1) mmol/L Chloride (98-107) mmol/L Carbon Dioxide 17 L (22-30) mmol/L BUN 3 L (9-20) mg/dL Creatinine 0.45 L (0.66-1.25) mg/dL Glucose 262 H (74-99) mg/dL POC Glucose (mg/dL) 251 H 243 H (75-99) mg/dL Phosphorus 2.3 L (2.5-4.5) mg/dL Assessment and Plan Plan: -Acute DKA/new onset diabetes: Continue insulin drip NPO Blood sugar checks every 1 hour BMP every 4 AG still not closed. We'll start subcu insulin once gap closes -Morbid obesity: Advised to lose weight, eat healthy diet and exercise Nutrition consult -Essential hypertension: Blood pressure improved Continue lisinopril 10 mg daily -DVT prophylaxis: Subcu Lovenox
[2018-02-04 12:00] LABS: Glucose,Whole Blood 259 mg/dL (75-99)
[2018-02-04] MEDS ORDERED: POTASSIUM PHOSPHATE 10 MMOL in SODIUM CHLORIDE 0.9% 250 ML IV ONE (12:00)
[2018-02-04] MEDS ORDERED: POTASSIUM CHLORIDE ER 20 MEQ TAB.ER PO SCH (12:00)
--- NOTE | 2018-02-04 13:08 | P.PN ---
Subjective Progress Note Date: 02/04/18 This is a very pleasant 22-year-old gentleman with no primary care physician. No past medical history. He is morbidly obese with a BMI of 50.8 kg/m. He had developed nausea and vomiting for 1 week's time. He was unable to keep even water down. Yesterday his mom became concerned and was taken to [facility]. He was found to have new onset diabetes with a blood glucose of 388. He was subsequently transferred here to the emergency room for further evaluation and treatment. His initial glucose was 287. Venous gases revealed a pH of 7.05, CO2 30, bicarbonate of 8. Electrolyte profile revealed sodium 147. Calcium 3.9 chloride 1:15 carbon dioxide less than 5 subsequent anion gap 23. Acetone was positive. He was initiated on the DKA protocol. He was transferred to the intensive care unit. He is seen there today in consultation. He is currently awake and alert in no acute distress. He is maintaining good O2 saturations of 200% on room air. He has not had any further nausea and vomiting. He is not tolerating diet just yet. He remains nothing by mouth. He is currently receiving D5 0.45 with 20 of KCl at 150 MLS per hour. He is on a insulin drip at 11.3 units per hour. Most recent lab results reveal a sodium of 142, potassium 4.2, chloride 114, carbon dioxide 13, anion gap 15. Creatinine is 0.48. Blood glucose 162. He remains on Lovenox for DVT prophylaxis. Protonix for GI prophylaxis. On 02/04/2018, the patient remained on an insulin drip at 5 units an hour. The patient came in for an acute DKA. He was treated with an insulin drip and this morning the patient is still has a positive anion gap at 17 with a bicarb level of 15. I decided to continue with the insulin drip until evening and I'm hoping by that time the anion gap will close. Meanwhile the patient is tolerating diet. No nausea. No vomiting. No abdominal pain. No altered mentation. He is also on D5 half-normal with potassium at the rate of 150 mL an hour. No other significant events for the past 24 hours. The patient is quite comfortable in bed. Objective - Vital Signs Vital signs: Vital Signs Temp 98.1 F 02/04/18 08:00 Pulse 95 02/04/18 11:00 Resp 19 02/04/18 11:00 BP 152/76 02/04/18 11:00 Pulse Ox 96 02/04/18 11:00 Intake & Output 02/03/18 02/04/18 02/04/18 18:59 06:59 18:59 Intake Total 3093.037 4419.937 1539.363 Balance 3093.037 4419.937 1539.363 Weight 169.8 kg 172.3 kg Intake: IV 1800 2175 525 D5-0.45% NaCl with KCl 1800 1800 150 20Meq/l 1,000 ml @ 150 mls/hr IV .Q6H40M [facility] Rx# :[id number] Potassium Phosphate 10 125 375 mmol In Sodium Chloride 0 .9% 250 ml @ 125 mls/hr IV Q2H [facility] Rx#:[id number] Sodium Phosphate 10 mmol 250 In Sodium Chloride 0.9% 250 ml @ 125 mls/hr IVPB Q2H [facility] Rx#:[id number] Intake, IV Titration 813.037 444.937 654.363 Amount Dextrose 5% in Water 1, 600 000 ml @ 150 mls/hr IV . Q6H48M [facility] with Potassium Chloride 40 meq Rx#: [id number] Insulin Regular 100 unit 88.037 94.937 54.363 In Sodium Chloride 0.9% 100 ml @ 0.1 UNITS/KG/HR 16.58 mls/hr IV .Q6H6M [facility] Rx#:[id number] Potassium Chloride 20 meq 100 100 In Water For Injection 1 100ml.bag @ 50 mls/hr IVPB Q4HR [facility] Rx#: [id number] Potassium Phosphate 10 125 mmol In Sodium Chloride 0 .9% 250 ml @ 125 mls/hr IV Q2H [facility] Rx#:[id number] Potassium Phosphate 10 250 mmol In Sodium Chloride 0 .9% 250 ml @ 125 mls/hr IV Q2H [facility] Rx#:[id number] Sodium Phosphate 10 mmol 250 250 In Sodium Chloride 0.9% 250 ml @ 125 mls/hr IVPB Q2H [facility] Rx#:[id number] Oral 480 1800 360 Other: Voiding Method Toilet Toilet Toilet # Voids 1 0 0 # Bowel Movements 1 1 - Exam GENERAL EXAM: Morbidly obese. Alert, comfortable in no apparent distress. HEAD: Normocephalic. EYES: Normal reaction of pupils, equal size. NOSE: Clear with pink turbinates. THROAT: No erythema or exudates. NECK: No masses, no JVD. CHEST: No chest wall deformity. LUNGS: Equal air entry with no crackles, wheeze, rhonchi or dullness. CVS: S1 and S2 normal with no audible murmur, regular rhythm. ABDOMEN: No hepatosplenomegaly, normal bowel sounds, no guarding or rigidity. SPINE: No scoliosis or deformity SKIN: No rashes CENTRAL NERVOUS SYSTEM: No focal deficits, tone is normal in all 4 extremities. EXTREMITIES: There is no peripheral edema. No clubbing, no cyanosis. Peripheral pulses are intact. - Labs CBC & Chem 7: 02/04/18 04:51 02/04/18 11:07 Labs: Abnormal Lab Results - Last 24 Hours (Table) 02/03/18 02/03/18 02/03/18 Range/Units 12:25 13:12 14:22 MCV (80.0-100.0) fL Potassium (3.5-5.1) mmol/L Chloride 114 H (98-107) mmol/L Carbon Dioxide 13 L (22-30) mmol/L BUN 4 L (9-20) mg/dL Creatinine 0.48 L (0.66-1.25) mg/dL Glucose 162 H (74-99) mg/dL POC Glucose (mg/dL) 159 H 256 H (75-99) mg/dL Phosphorus 1.8 L (2.5-4.5) mg/dL 02/03/18 02/03/18 02/03/18 Range/Units 15:03 15:56 16:10 MCV (80.0-100.0) fL Potassium 2.8 L* (3.5-5.1) mmol/L Chloride 110 H (98-107) mmol/L Carbon Dioxide 12 L (22-30) mmol/L BUN 4 L (9-20) mg/dL Creatinine 0.64 L (0.66-1.25) mg/dL Glucose 286 H (74-99) mg/dL POC Glucose (mg/dL) 242 H 279 H (75-99) mg/dL Phosphorus 1.4 L (2.5-4.5) mg/dL 02/03/18 02/03/18 02/03/18 Range/Units 17:06 18:01 19:12 MCV (80.0-100.0) fL Potassium (3.5-5.1) mmol/L Chloride (98-107) mmol/L Carbon Dioxide (22-30) mmol/L BUN (9-20) mg/dL Creatinine (0.66-1.25) mg/dL Glucose (74-99) mg/dL POC Glucose (mg/dL) 283 H 291 H 305 H (75-99) mg/dL Phosphorus (2.5-4.5) mg/dL 02/03/18 02/03/18 02/03/18 Range/Units 19:57 21:03 21:17 MCV (80.0-100.0) fL Potassium (3.5-5.1) mmol/L Chloride 114 H (98-107) mmol/L Carbon Dioxide 10 L* (22-30) mmol/L BUN 5 L (9-20) mg/dL Creatinine 0.60 L (0.66-1.25) mg/dL Glucose 288 H (74-99) mg/dL POC Glucose (mg/dL) 293 H 293 H (75-99) mg/dL Phosphorus 1.8 L (2.5-4.5) mg/dL 02/03/18 02/03/18 02/04/18 Range/Units 22:07 23:46 00:39 MCV (80.0-100.0) fL Potassium (3.5-5.1) mmol/L Chloride (98-107) mmol/L Carbon Dioxide (22-30) mmol/L BUN (9-20) mg/dL Creatinine (0.66-1.25) mg/dL Glucose (74-99) mg/dL POC Glucose (mg/dL) 272 H 217 H 202 H (75-99) mg/dL Phosphorus (2.5-4.5) mg/dL 02/04/18 02/04/18 02/04/18 Range/Units 01:05 01:31 02:28 MCV (80.0-100.0) fL Potassium 3.1 L (3.5-5.1) mmol/L Chloride 109 H (98-107) mmol/L Carbon Dioxide 15 L (22-30) mmol/L BUN 3 L (9-20) mg/dL Creatinine 0.50 L (0.66-1.25) mg/dL Glucose 210 H (74-99) mg/dL POC Glucose (mg/dL) 213 H 231 H (75-99) mg/dL Phosphorus 1.7 L (2.5-4.5) mg/dL 02/04/18 02/04/18 02/04/18 Range/Units 03:26 04:37 04:51 MCV 78.4 L (80.0-100.0) fL Potassium (3.5-5.1) mmol/L Chloride (98-107) mmol/L Carbon Dioxide (22-30) mmol/L BUN (9-20) mg/dL Creatinine (0.66-1.25) mg/dL Glucose (74-99) mg/dL POC Glucose (mg/dL) 197 H 149 H (75-99) mg/dL Phosphorus (2.5-4.5) mg/dL 02/04/18 02/04/18 02/04/18 Range/Units 04:51 05:57 07:03 MCV (80.0-100.0) fL Potassium 3.1 L (3.5-5.1) mmol/L Chloride 109 H (98-107) mmol/L Carbon Dioxide 15 L (22-30) mmol/L BUN 3 L (9-20) mg/dL Creatinine 0.50 L (0.66-1.25) mg/dL Glucose 153 H (74-99) mg/dL POC Glucose (mg/dL) 175 H 183 H (75-99) mg/dL Phosphorus 1.5 L (2.5-4.5) mg/dL 02/04/18 02/04/18 02/04/18 Range/Units 08:01 09:18 10:08 MCV (80.0-100.0) fL Potassium (3.5-5.1) mmol/L Chloride (98-107) mmol/L Carbon Dioxide (22-30) mmol/L BUN (9-20) mg/dL Creatinine (0.66-1.25) mg/dL Glucose (74-99) mg/dL POC Glucose (mg/dL) 220 H 279 H 251 H (75-99) mg/dL Phosphorus (2.5-4.5) mg/dL 02/04/18 02/04/18 02/04/18 Range/Units 11:07 11:12 11:59 MCV (80.0-100.0) fL Potassium (3.5-5.1) mmol/L Chloride (98-107) mmol/L Carbon Dioxide 17 L (22-30) mmol/L BUN 3 L (9-20) mg/dL Creatinine 0.45 L (0.66-1.25) mg/dL Glucose 262 H (74-99) mg/dL POC Glucose (mg/dL) 243 H 259 H (75-99) mg/dL Phosphorus 2.3 L (2.5-4.5) mg/dL Assessment and Plan Plan: Impression: #1 Diabetic ketoacidosis with new onset diabetes mellitus. The patient is on insulin drip. The patient has still a positive anion gap although improved yet this morning the 9 gap is at 17 with a bicarb level of 15. We'll continue the treatment for another 12 hours until his anion gap is closed. #2 Anion gap lactic acidosis secondary to above. Acetone positive. Improved. #3 Hypernatremia secondary to dehydration. Recovered #4 Gastroparesis with nausea and vomiting secondary to above #5 Morbid obesity with a BMI of 50.8 kg/m Plan Continue the insulin drip. Once the anion gap closes, the patient will be switched to Levemir insulin 52 units in addition to 17 units of NovoLog with meals every before meals and at bedtime along with a sliding scale coverage. We 'll continue to follow make further recommendations based on his progress. Until then, continue the insulin drip and monitor the blood sugars and keep the patient ICU.
[2018-02-04 13:13] LABS: Glucose,Whole Blood 261 mg/dL (75-99)
[2018-02-04 14:03] LABS: Glucose,Whole Blood 221 mg/dL (75-99)
[2018-02-04 15:01] LABS: Glucose,Whole Blood 228 mg/dL (75-99)
[2018-02-04 16:00] LABS: Anion Gap 15 mmol/L; Blood Urea Nitrogen 2 mg/dL (9-20); Calcium 9.1 mg/dL (8.4-10.2); Carbon Dioxide 18 mmol/L (22-30); Chloride 103 mmol/L (98-107); Glucose 209 mg/dL (74-99); Potassium 3.8 mmol/L (3.5-5.1); Sodium 136 mmol/L (137-145)
[2018-02-04 16:05] LABS: Glucose,Whole Blood 195 mg/dL (75-99)
[2018-02-04 17:08] LABS: Glucose,Whole Blood 177 mg/dL (75-99)
[2018-02-04 18:03] LABS: Glucose,Whole Blood 164 mg/dL (75-99)
[2018-02-04 20:04] LABS: Glucose,Whole Blood 160 mg/dL (75-99)
[2018-02-04 21:17] LABS: Glucose,Whole Blood 158 mg/dL (75-99)
[2018-02-04 22:04] LABS: Glucose,Whole Blood 151 mg/dL (75-99)
[2018-02-04 23:07] LABS: Glucose,Whole Blood 141 mg/dL (75-99)
[2018-02-05 00:11] LABS: Glucose,Whole Blood 143 mg/dL (75-99)
[2018-02-05 01:01] LABS: Glucose,Whole Blood 168 mg/dL (75-99)
[2018-02-05 02:10] LABS: Glucose,Whole Blood 174 mg/dL (75-99)
[2018-02-05 03:09] LABS: Glucose,Whole Blood 204 mg/dL (75-99)
[2018-02-05 04:27] LABS: Basophils % (A) 0 %; Eosinophils # (A) 0.3 k/uL (0-0.7); Eosinophils % (A) 5 %; HCT 41.5 % (39.0-53.0); HGB 14.4 gm/dL (13.0-17.5); Lymphocytes # (A) 2.1 k/uL (1.0-4.8); Lymphocytes % (A) 31 %; MCH 27.4 pg (25.0-35.0); MCHC 34.6 g/dL (31.0-37.0); MCV 79.2 fL (80.0-100.0); Mean Platelet Volume 9.9; Monocytes # (A) 0.4 k/uL (0-1.0); Monocytes % (A) 6 %; Neutrophils # (A) 3.8 k/uL (1.3-7.7); Neutrophils % (A) 56 %; Platelet Count 174 k/uL (150-450); RBC 5.24 m/uL (4.30-5.90); RDW 14.1 % (11.5-15.5); WBC 6.7 k/uL (3.8-10.6)
[2018-02-05 04:40] LABS: Anion Gap 15 mmol/L; Blood Urea Nitrogen 2 mg/dL (9-20); Calcium 9.3 mg/dL (8.4-10.2); Carbon Dioxide 20 mmol/L (22-30); Chloride 101 mmol/L (98-107); Glucose 201 mg/dL (74-99); Magnesium 1.7 mg/dL (1.6-2.3); Phosphorus 2.9 mg/dL (2.5-4.5); Potassium 3.5 mmol/L (3.5-5.1); Sodium 136 mmol/L (137-145)
[2018-02-05 05:21] LABS: Glucose,Whole Blood 203 mg/dL (75-99)
[2018-02-05] MEDS: POTASSIUM CHLORIDE ER 20 MEQ TAB.ER PO SCH ×2 (06:00→08:17)
[2018-02-05 06:09] LABS: Glucose,Whole Blood 211 mg/dL (75-99)
[2018-02-05] MEDS: MAGNESIUM SULFATE-D5W PMX 1 GM in DEXTROSE/WATER 1 100ML.BAG IVPB SCH ×2 (06:13→07:18)
[2018-02-05 07:03] LABS: Glucose,Whole Blood 225 mg/dL (75-99)
[2018-02-05 08:17] LABS: Glucose,Whole Blood 250 mg/dL (75-99)
[2018-02-05] MEDS: LISINOPRIL 10 MG TAB PO SCH (08:18)
[2018-02-05] MEDS: ENOXAPARIN 40 MG/0.4 ML SYRINGE SQ SCH (08:18)
[2018-02-05] MEDS: PANTOPRAZOLE 40 MG TABLET PO SCH (08:18)
[2018-02-05] MEDS: INSULIN REGULAR 100 UNIT in SODIUM CHLORIDE 0.9% 100 ML IV SCH (08:19)
[2018-02-05 09:13] LABS: Glucose,Whole Blood 224 mg/dL (75-99)
[2018-02-05 10:23] LABS: Glucose,Whole Blood 244 mg/dL (75-99)
--- NOTE | 2018-02-05 10:55 | P.PN ---
Subjective Progress Note Date: 02/05/18 Principal diagnosis: Acute diabetic ketoacidosis This is a very pleasant 22-year-old gentleman with no primary care physician. No past medical history. He is morbidly obese with a BMI of 50.8 kg/m. He had developed nausea and vomiting for 1 week's time. He was unable to keep even water down. Yesterday his mom became concerned and was taken to [facility]. He was found to have new onset diabetes with a blood glucose of 388. He was subsequently transferred here to the emergency room for further evaluation and treatment. His initial glucose was 287. Venous gases revealed a pH of 7.05, CO2 30, bicarbonate of 8. Electrolyte profile revealed sodium 147. Calcium 3.9 chloride 1:15 carbon dioxide less than 5 subsequent anion gap 23. Acetone was positive. He was initiated on the DKA protocol. He was transferred to the intensive care unit. He is seen there today in consultation. He is currently awake and alert in no acute distress. He is maintaining good O2 saturations of 200% on room air. He has not had any further nausea and vomiting. He is not tolerating diet just yet. He remains nothing by mouth. He is currently receiving D5 0.45 with 20 of KCl at 150 MLS per hour. He is on a insulin drip at 11.3 units per hour. Most recent lab results reveal a sodium of 142, potassium 4.2, chloride 114, carbon dioxide 13, anion gap 15. Creatinine is 0.48. Blood glucose 162. He remains on Lovenox for DVT prophylaxis. Protonix for GI prophylaxis. On 02/04/2018, the patient remained on an insulin drip at 5 units an hour. The patient came in for an acute DKA. He was treated with an insulin drip and this morning the patient is still has a positive anion gap at 17 with a bicarb level of 15. I decided to continue with the insulin drip until evening and I'm hoping by that time the anion gap will close. Meanwhile the patient is tolerating diet. No nausea. No vomiting. No abdominal pain. No altered mentation. He is also on D5 half-normal with potassium at the rate of 150 mL an hour. No other significant events for the past 24 hours. The patient is quite comfortable in bed. Reevaluated today on 02/05/2018, patient remains on insulin drip, he is also on D5W, sugars are running in the 200s range, his anion gap seems to be correcting nicely, today it is 15. Bicarb is 20 and it was less then 5 upon admission. Potassium is 3.5. BUN is 2 creatinine 0.40. CBC is relatively normal. Objective - Vital Signs Vital signs: Vital Signs Temp 97.8 F 02/05/18 08:00 Pulse 82 02/05/18 10:00 Resp 18 02/05/18 10:00 BP 151/68 02/05/18 10:00 Pulse Ox 97 02/05/18 10:00 Intake & Output 02/04/18 02/05/18 02/05/18 18:59 06:59 18:59 Intake Total 3392.363 1900 587.5 Output Total 0 1000 Balance 3392.363 900 587.5 Weight 172.1 kg Intake: IV 1375 1900 550 D5-0.45% NaCl with KCl 150 20Meq/l 1,000 ml @ 150 mls/hr IV .Q6H40M [facility] Rx# :[id number] Dextrose 5% in Water 1, 600 1800 450 000 ml @ 150 mls/hr IV . Q6H48M [facility] with Potassium Chloride 40 meq Rx#: [id number] Magnesium Sulfate-D5w Pmx 100 100 1 gm In Dextrose/Water 1 100ml.bag @ 100 mls/hr IVPB Q1H [facility] Rx#: [id number] Potassium Phosphate 10 375 mmol In Sodium Chloride 0 .9% 250 ml @ 125 mls/hr IV Q2H [facility] Rx#:[id number] Potassium Phosphate 10 250 mmol In Sodium Chloride 0 .9% 250 ml @ 125 mls/hr IV Q2H [facility] Rx#:[id number] Intake, IV Titration 1657.363 37.5 Amount Dextrose 5% in Water 1, 1050 000 ml @ 150 mls/hr IV . Q6H48M [facility]IE with Potassium Chloride 40 meq Rx#: [id number] Insulin Regular 100 unit 37.5 In Sodium Chloride 0.9% 100 ml @ 0.1 UNIT/HR 0.1 mls/hr IV .Q24H [facility] Rx#: [id number] Insulin Regular 100 unit 357.363 In Sodium Chloride 0.9% 100 ml @ 0.1 UNITS/KG/HR 16.58 mls/hr IV .Q6H6M [facility]IE Rx#:[id number] Potassium Phosphate 10 250 mmol In Sodium Chloride 0 .9% 250 ml @ 125 mls/hr IV ONCE ONE Rx#:[id number] Oral 360 Output: Urine 0 1000 Other: Voiding Method Toilet Toilet Toilet # Voids 0 0 # Bowel Movements 0 0 - Exam GENERAL EXAM: Morbidly obese. Alert, comfortable in no apparent distress. HEAD: Normocephalic. EYES: Normal reaction of pupils, equal size. NOSE: Clear with pink turbinates. THROAT: No erythema or exudates. NECK: No masses, no JVD. CHEST: No chest wall deformity. LUNGS: Equal air entry with no crackles, wheeze, rhonchi or dullness. CVS: S1 and S2 normal with no audible murmur, regular rhythm. ABDOMEN: No hepatosplenomegaly, normal bowel sounds, no guarding or rigidity. SPINE: No scoliosis or deformity SKIN: No rashes CENTRAL NERVOUS SYSTEM: No focal deficits, tone is normal in all 4 extremities. EXTREMITIES: There is no peripheral edema. No clubbing, no cyanosis. Peripheral pulses are intact. - Labs CBC & Chem 7: 02/05/18 04:08 02/05/18 04:08 Labs: Abnormal Lab Results - Last 24 Hours (Table) 02/04/18 02/04/18 02/04/18 Range/Units 11:07 11:12 11:59 MCV (80.0-100.0) fL Sodium (137-145) mmol/L Carbon Dioxide 17 L (22-30) mmol/L BUN 3 L (9-20) mg/dL Creatinine 0.45 L (0.66-1.25) mg/dL Glucose 262 H (74-99) mg/dL POC Glucose (mg/dL) 243 H 259 H (75-99) mg/dL Phosphorus 2.3 L (2.5-4.5) mg/dL 02/04/18 02/04/18 02/04/18 Range/Units 13:10 14:01 15:00 MCV (80.0-100.0) fL Sodium (137-145) mmol/L Carbon Dioxide (22-30) mmol/L BUN (9-20) mg/dL Creatinine (0.66-1.25) mg/dL Glucose (74-99) mg/dL POC Glucose (mg/dL) 261 H 221 H 228 H (75-99) mg/dL Phosphorus (2.5-4.5) mg/dL 02/04/18 02/04/18 02/04/18 Range/Units :18 16:03 17:07 MCV (80.0-100.0) fL Sodium 136 L (137-145) mmol/L Carbon Dioxide 18 L (22-30) mmol/L BUN 2 L (9-20) mg/dL Creatinine 0.42 L (0.66-1.25) mg/dL Glucose 209 H (74-99) mg/dL POC Glucose (mg/dL) 195 H 177 H (75-99) mg/dL Phosphorus 2.0 L (2.5-4.5) mg/dL 02/04/18 02/04/18 02/04/18 Range/Units 18:01 20:02 21:15 MCV (80.0-100.0) fL Sodium (137-145) mmol/L Carbon Dioxide (22-30) mmol/L BUN (9-20) mg/dL Creatinine (0.66-1.25) mg/dL Glucose (74-99) mg/dL POC Glucose (mg/dL) 164 H 160 H 158 H (75-99) mg/dL Phosphorus (2.5-4.5) mg/dL 02/04/18 02/04/18 02/05/18 Range/Units 22:02 23:05 00:10 MCV (80.0-100.0) fL Sodium (137-145) mmol/L Carbon Dioxide (22-30) mmol/L BUN (9-20) mg/dL Creatinine (0.66-1.25) mg/dL Glucose (74-99) mg/dL POC Glucose (mg/dL) 151 H 141 H 143 H (75-99) mg/dL Phosphorus (2.5-4.5) mg/dL 02/05/18 02/05/18 02/05/18 Range/Units 00:57 02:09 03:07 MCV (80.0-100.0) fL Sodium (137-145) mmol/L Carbon Dioxide (22-30) mmol/L BUN (9-20) mg/dL Creatinine (0.66-1.25) mg/dL Glucose (74-99) mg/dL POC Glucose (mg/dL) 168 H 174 H 204 H (75-99) mg/dL Phosphorus (2.5-4.5) mg/dL 02/05/18 02/05/18 02/05/18 Range/Units 04:08 04:08 05:19 MCV 79.2 L (80.0-100.0) fL Sodium 136 L (137-145) mmol/L Carbon Dioxide 20 L (22-30) mmol/L BUN 2 L (9-20) mg/dL Creatinine 0.40 L (0.66-1.25) mg/dL Glucose 201 H (74-99) mg/dL POC Glucose (mg/dL) 203 H (75-99) mg/dL Phosphorus (2.5-4.5) mg/dL 02/05/18 02/05/18 02/05/18 Range/Units 06:07 07:02 08:15 MCV (80.0-100.0) fL Sodium (137-145) mmol/L Carbon Dioxide (22-30) mmol/L BUN (9-20) mg/dL Creatinine (0.66-1.25) mg/dL Glucose (74-99) mg/dL POC Glucose (mg/dL) 211 H 225 H 250 H (75-99) mg/dL Phosphorus (2.5-4.5) mg/dL 02/05/18 02/05/18 Range/Units 09:11 10:22 MCV (80.0-100.0) fL Sodium (137-145) mmol/L Carbon Dioxide (22-30) mmol/L BUN (9-20) mg/dL Creatinine (0.66-1.25) mg/dL Glucose (74-99) mg/dL POC Glucose (mg/dL) 224 H 244 H (75-99) mg/dL Phosphorus (2.5-4.5) mg/dL Assessment and Plan Assessment: #1 acute Diabetic ketoacidosis with new onset diabetes mellitus. The patient is on insulin drip. The patient has still a positive anion gap improving, and bicarb level is also improving. #2 Anion gap lactic acidosis secondary to above. Acetone positive. Improved. #3 Hypernatremia secondary to dehydration. Recovered #4 Gastroparesis with nausea and vomiting secondary to above #5 Morbid obesity with a BMI of 50.8 kg/m Recommendation: Continue insulin drip, continue to follow the DKA protocol, start feeding, we'll continue to follow closely. Will keep in the ICU for 24 hours. Time with Patient: Less than 30
[2018-02-05 11:15] LABS: Anion Gap 11 mmol/L; Blood Urea Nitrogen 2 mg/dL (9-20); Calcium 8.8 mg/dL (8.4-10.2); Carbon Dioxide 23 mmol/L (22-30); Chloride 100 mmol/L (98-107); Glucose 234 mg/dL (74-99); Phosphorus 2.4 mg/dL (2.5-4.5); Potassium 3.6 mmol/L (3.5-5.1); Sodium 134 mmol/L (137-145)
[2018-02-05] MEDS: DEXTROSE 5% IN WATER 1,000 ML with POTASSIUM CHLORIDE 40 MEQ IV SCH (11:53)
[2018-02-05] MEDS ORDERED: POTASSIUM CHLORIDE ER 20 MEQ TAB.ER PO SCH (12:00)
[2018-02-05 12:01] LABS: Glucose,Whole Blood 255 mg/dL (75-99)
--- NOTE | 2018-02-05 12:25 | P.PN ---
Subjective Progress Note Date: 02/05/18 Principal diagnosis: Vomiting DKA Patient is feeling okay, no nausea, vomiting or abdominal pain. Objective - Vital Signs Vital signs: Vital Signs Temp 97.8 F 02/05/18 08:00 Pulse 98 02/05/18 12:00 Resp 12 02/05/18 12:00 BP 128/70 02/05/18 12:00 Pulse Ox 97 02/05/18 12:00 Intake & Output 02/04/18 02/05/18 02/05/18 18:59 06:59 18:59 Intake Total 3392.363 1900 1394.075 Output Total 0 1000 Balance 3392.357 095 4818.075 Weight 172.1 kg Intake: IV 1375 1900 850 D5-0.45% NaCl with KCl 150 20Meq/l 1,000 ml @ 150 mls/hr IV .Q6H40M NAOMIE Rx# :[id number] Dextrose 5% in Water 1, 600 1800 750 000 ml @ 150 mls/hr IV . Q6H48M NAOMIE with Potassium Chloride 40 meq Rx#: [id number] Magnesium Sulfate-D5w Pmx 100 100 1 gm In Dextrose/Water 1 100ml.bag @ 100 mls/hr IVPB Q1H NAOMIE Rx#: [id number] Potassium Phosphate 10 375 mmol In Sodium Chloride 0 .9% 250 ml @ 125 mls/hr IV Q2H NAOMIE Rx#:[id number] Potassium Phosphate 10 250 mmol In Sodium Chloride 0 .9% 250 ml @ 125 mls/hr IV Q2H NAOMIE Rx#:[id number] Intake, IV Titration 1657.363 304.075 Amount Dextrose 5% in Water 1, 1050 000 ml @ 150 mls/hr IV . Q6H48M NAOMIE with Potassium Chloride 40 meq Rx#: [id number] Insulin Regular 100 unit 54.075 In Sodium Chloride 0.9% 100 ml @ 0.1 UNIT/HR 0.1 mls/hr IV .Q24H NAOMIE Rx#: [id number] Insulin Regular 100 unit 357.363 In Sodium Chloride 0.9% 100 ml @ 0.1 UNITS/KG/HR 16.58 mls/hr IV .Q6H6M NAOMIE Rx#:[id number] Potassium Phosphate 10 250 mmol In Sodium Chloride 0 .9% 250 ml @ 125 mls/hr IV ONCE ONE Rx#:[id number] Potassium Phosphate 10 250 mmol In Sodium Chloride 0 .9% 250 ml @ 125 mls/hr IV ONCE ONE Rx#:[id number] Oral 360 240 Output: Urine 0 1000 Other: Voiding Method Toilet Toilet Toilet # Voids 0 0 # Bowel Movements 0 0 0 - Exam Constitutional: No acute distress, conversant, pleasant Eyes:Anicteric sclerae, moist conjunctiva, no lid-lag, PERRLA, ENMT: Oropharynx clear, no erythema, exudates Neck: Supple, FROM, no masses, or JVD, No carotid bruits, No thyromegaly Lungs: Clear to auscultation, Clear to percussion, Normal respiratory effort, no accessory muscle use Cardiovascular: Heart regular in rate and rhythm, No murmurs, gallops, or rubs, No peripheral edema Abdominal: Soft, Nontender, no guarding, rebound or rigidity, Normoactive bowel sounds, No hepatomegaly, No splenomegaly, No palpable mass Skin: Normal temperature, tone, texture, turgor, no induration, No subcutaneous nodules, No rash, lesions, No ulcers Extremities: No digital cyanosis, No clubbing, Pedal pulses intact and symmetrical, Radial pulses intact and symmetrical, No calf tenderness Psychiatric: Alert and oriented to person, place and time, appropriate affect, intact judgement Neuro: Muscles Strength 5/5 in all 4 extremities, Sensation to light touch grossly present throughout, Cranial nerves II-XII grossly intact, no focal sensory deficits - Labs CBC & Chem 7: 02/05/18 04:08 02/05/18 10:42 Labs: Abnormal Lab Results - Last 24 Hours (Table) 02/04/18 02/04/18 02/04/18 Range/Units 13:10 14:01 15:00 MCV (80.0-100.0) fL Sodium (137-145) mmol/L Carbon Dioxide (22-30) mmol/L BUN (9-20) mg/dL Creatinine (0.66-1.25) mg/dL Glucose (74-99) mg/dL POC Glucose (mg/dL) 261 H 221 H 228 H (75-99) mg/dL Phosphorus (2.5-4.5) mg/dL 02/04/18 02/04/18 02/04/18 Range/Units :18 16:03 17:07 MCV (80.0-100.0) fL Sodium 136 L (137-145) mmol/L Carbon Dioxide 18 L (22-30) mmol/L BUN 2 L (9-20) mg/dL Creatinine 0.42 L (0.66-1.25) mg/dL Glucose 209 H (74-99) mg/dL POC Glucose (mg/dL) 195 H 177 H (75-99) mg/dL Phosphorus 2.0 L (2.5-4.5) mg/dL 02/04/18 02/04/18 02/04/18 Range/Units 18:01 20:02 21:15 MCV (80.0-100.0) fL Sodium (137-145) mmol/L Carbon Dioxide (22-30) mmol/L BUN (9-20) mg/dL Creatinine (0.66-1.25) mg/dL Glucose (74-99) mg/dL POC Glucose (mg/dL) 164 H 160 H 158 H (75-99) mg/dL Phosphorus (2.5-4.5) mg/dL 02/04/18 02/04/18 02/05/18 Range/Units 22:02 23:05 00:10 MCV (80.0-100.0) fL Sodium (137-145) mmol/L Carbon Dioxide (22-30) mmol/L BUN (9-20) mg/dL Creatinine (0.66-1.25) mg/dL Glucose (74-99) mg/dL POC Glucose (mg/dL) 151 H 141 H 143 H (75-99) mg/dL Phosphorus (2.5-4.5) mg/dL 02/05/18 02/05/18 02/05/18 Range/Units 00:57 02:09 03:07 MCV (80.0-100.0) fL Sodium (137-145) mmol/L Carbon Dioxide (22-30) mmol/L BUN (9-20) mg/dL Creatinine (0.66-1.25) mg/dL Glucose (74-99) mg/dL POC Glucose (mg/dL) 168 H 174 H 204 H (75-99) mg/dL Phosphorus (2.5-4.5) mg/dL 02/05/18 02/05/18 02/05/18 Range/Units 04:08 04:08 05:19 MCV 79.2 L (80.0-100.0) fL Sodium 136 L (137-145) mmol/L Carbon Dioxide 20 L (22-30) mmol/L BUN 2 L (9-20) mg/dL Creatinine 0.40 L (0.66-1.25) mg/dL Glucose 201 H (74-99) mg/dL POC Glucose (mg/dL) 203 H (75-99) mg/dL Phosphorus (2.5-4.5) mg/dL 02/05/18 02/05/18 02/05/18 Range/Units 06:07 07:02 08:15 MCV (80.0-100.0) fL Sodium (137-145) mmol/L Carbon Dioxide (22-30) mmol/L BUN (9-20) mg/dL Creatinine (0.66-1.25) mg/dL Glucose (74-99) mg/dL POC Glucose (mg/dL) 211 H 225 H 250 H (75-99) mg/dL Phosphorus (2.5-4.5) mg/dL 02/05/18 02/05/18 02/05/18 Range/Units 09:11 10:22 10:42 MCV (80.0-100.0) fL Sodium 134 L (137-145) mmol/L Carbon Dioxide (22-30) mmol/L BUN 2 L (9-20) mg/dL Creatinine 0.43 L (0.66-1.25) mg/dL Glucose 234 H (74-99) mg/dL POC Glucose (mg/dL) 224 H 244 H (75-99) mg/dL Phosphorus 2.4 L (2.5-4.5) mg/dL 02/05/18 Range/Units 11:59 MCV (80.0-100.0) fL Sodium (137-145) mmol/L Carbon Dioxide (22-30) mmol/L BUN (9-20) mg/dL Creatinine (0.66-1.25) mg/dL Glucose (74-99) mg/dL POC Glucose (mg/dL) 255 H (75-99) mg/dL Phosphorus (2.5-4.5) mg/dL Assessment and Plan Plan: -Acute DKA/new onset diabetes: Start carbohydrate consisent diet. Blood sugar checks every AC and HS AG jsut closed--will start lantus 30 units daily first dose now and aspart 12 units tid. SSI high dose -Morbid obesity: Advised to lose weight, eat healthy diet and exercise Nutrition consult -Essential hypertension: Blood pressure improved Continue lisinopril 10 mg daily -DVT prophylaxis: Subcu Lovenox Anticipated discharge in 1 day. D/W RN, care management
[2018-02-05] MEDS ORDERED: POTASSIUM PHOSPHATE 10 MMOL in SODIUM CHLORIDE 0.9% 250 ML IV ONE (12:30)
[2018-02-05] MEDS: INSULIN ASPART 100 UNIT/ML 1 ML 10 ML VIAL SQ SCH ×5 (12:42→21:47)
[2018-02-05] MEDS: INSULIN DETEMIR 100 UNIT/ML 10 ML VIAL SQ SCH ×2 (12:56→21:47)
[2018-02-05 17:16] LABS: Glucose,Whole Blood 214 mg/dL (75-99)
[2018-02-05 21:13] LABS: Glucose,Whole Blood 219 mg/dL (75-99)
[2018-02-05 23:57] VITALS: PULSE 96; RESP 20
[2018-02-06 02:45] LABS: Glucose,Whole Blood 170 mg/dL (75-99)
[2018-02-06 06:14] VITALS: BP 127/67; TEMP 98.1
[2018-02-06 07:18] LABS: Glucose,Whole Blood 178 mg/dL (75-99)
[2018-02-06] MEDS: ENOXAPARIN 40 MG/0.4 ML SYRINGE SQ SCH (08:36)
[2018-02-06] MEDS: PANTOPRAZOLE 40 MG TABLET PO SCH (08:36)
[2018-02-06] MEDS: INSULIN ASPART 100 UNIT/ML 1 ML 10 ML VIAL SQ SCH ×4 (08:36→12:30)
[2018-02-06] MEDS: LISINOPRIL 10 MG TAB PO SCH (08:37)
[2018-02-06 08:49] LABS: Basophils # (A) 0.1 k/uL (0-0.2); Basophils % (A) 1 %; Eosinophils # (A) 0.3 k/uL (0-0.7); Eosinophils % (A) 4 %; HCT 45.5 % (39.0-53.0); HGB 15.5 gm/dL (13.0-17.5); Lymphocytes # (A) 2.1 k/uL (1.0-4.8); Lymphocytes % (A) 33 %; MCH 27.6 pg (25.0-35.0); Mean Platelet Volume 9.1; Monocytes # (A) 0.6 k/uL (0-1.0); Monocytes % (A) 9 %; Neutrophils # (A) 3.1 k/uL (1.3-7.7); Neutrophils % (A) 50 %; Platelet Count 173 k/uL (150-450); RBC 5.62 m/uL (4.30-5.90); RDW 14.4 % (11.5-15.5); WBC 6.2 k/uL (3.8-10.6)
[2018-02-06 09:04] LABS: Anion Gap 14 mmol/L; Blood Urea Nitrogen 3 mg/dL (9-20); Calcium 9.1 mg/dL (8.4-10.2); Carbon Dioxide 23 mmol/L (22-30); Chloride 100 mmol/L (98-107); Glucose 184 mg/dL (74-99); Magnesium 1.9 mg/dL (1.6-2.3); Phosphorus 3.7 mg/dL (2.5-4.5); Potassium 3.8 mmol/L (3.5-5.1); Sodium 137 mmol/L (137-145)
--- NOTE | 2018-02-06 10:56 | P.DS ---
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 Presented the hospital due to one-week history of nausea and vomiting he was found to have DKA , with new onset diabetes. He was admitted to the ICU due to severe acidosis and was managed for hospital DKA protocol. Then he was transitioned safely to insulin sliding scale. After his AL on gap and bicarb normalizes. Patient tolerated by mouth intake. contact worker lithography assisted and providing the patient with insulin vials syringes and equipments that he will need to monitor his blood sugar. Patient received diabetic education, and he reported that he will follow-up with his mother's primary care physician. Patient seen and examined on day of discharge, doing well tolerating by mouth intake denies any chest pain or trouble breathing denies any fevers or chills 9 any abdominal pain. He verbalized understanding of our recommendations. Constitutional: vital signs stable, Not in acute distress, pleasant, conversant Lungs: Clear to auscultation bilaterally, clear to percussion, normal respiratory effort Cardiovascular: Regular rate and rhythm, no murmurs, no gallops, no rubs, no peripheral edema Gastrointestinal: Soft, no tenderness to palpation, no palpable hepatosplenomegally, bowel sounds positive Extremities: No digital cyanosis or clubbing, peripheral pulses palpable and equal over bilateral radial arteries and dorsalis pedis artery, no calf muscle tenderness Psych: Alert, oriented to place, person and time, appropriate affect, intact judgment Patient counseled to consider annual eye exam, foot exam, along with regular visits his PCP to keep his blood sugar checked and to monitor his renal function. Reading materials provided the patient Patient counseled regarding life somewhat sketchy weight Patient will be discharged on long-acting insulin at night and short-acting insulin prior to meals, patient instructed to monitor his blood sugar 40 minutes were spent discharging this patient, and more than 50% of the time was spent in counseling the patient and family and in coordinating care. Patient Condition at Discharge: Stable Plan - Discharge Summary Discharge Rx Participant: Yes New Discharge Prescriptions: New Alcohol Antiseptic Pads [Alcohol Swabs] 1 each TP TID #100 med..pad Blood Sugar Diagnostic [Test Strips] 1 each MC TID #100 strip Insulin Aspart [NovoLOG (formulary)] 14 unit SQ AC-TID #1 vial Insulin Glargine [Lantus] 30 unit SQ HS #1 vial Lancets 1 each MC TID #100 each Lisinopril [Zestril] 10 mg PO DAILY #30 tab Syringe and Needle,Insulin,1Ml [Insulin Syringe 29G 1/2" 1ml] 1 each MC TID # 100 disp.syrin Discharge Medication List Alcohol Antiseptic Pads [Alcohol Swabs] 1 each TP TID #100 med..pad 02/06/18 [Rx ] Blood Sugar Diagnostic [Test Strips] 1 each MC TID #100 strip 02/06/18 [Rx] Insulin Aspart [NovoLOG (formulary)] 14 unit SQ AC-TID #1 vial 02/06/18 [Rx] Insulin Glargine [Lantus] 30 unit SQ HS #1 vial 02/06/18 [Rx] Lancets 1 each MC TID #100 each 02/06/18 [Rx] Lisinopril [Zestril] 10 mg PO DAILY #30 tab 02/06/18 [Rx] Syringe and Needle,Insulin,1Ml [Insulin Syringe 29G 1/2" 1ml] 1 each MC TID # 100 disp.syrin 02/06/18 [Rx] Follow up Appointment(s)/Referral(s): Connie Bahena PAC [REFERRING] - 02/09/18 11:00 am Patient Instructions/Handouts: How to Check Your Blood Sugar (DC), Diabetic Ketoacidosis (DC), Foot Care for People with Diabetes (DC), Type 1 Diabetes in Adults (DC), Hypoglycemia in a Person with Diabetes (DC) Activity/Diet/Wound Care/Special Instructions: Diabetic diet. Activity as tolerated Glucometer given to patient. Check blood sugar before meals and at bedtime and record. Take log to doctors office with you for input. Diabetic class information/schedule and diabetic folder given and educated. Care Plan Goals (MU): annual eye exam annual foot exam regular follow up with your primary care doctor. Discharge Disposition: HOME SELF-CARE
--- NOTE | 2018-02-06 11:08 | P.PN ---
Subjective Progress Note Date: 02/06/18 Principal diagnosis: Acute diabetic ketoacidosis This is a very pleasant 22-year-old gentleman with no primary care physician. No past medical history. He is morbidly obese with a BMI of 50.8 kg/m. He had developed nausea and vomiting for 1 week's time. He was unable to keep even water down. Yesterday his mom became concerned and was taken to [facility]. He was found to have new onset diabetes with a blood glucose of 388. He was subsequently transferred here to the emergency room for further evaluation and treatment. His initial glucose was 287. Venous gases revealed a pH of 7.05, CO2 30, bicarbonate of 8. Electrolyte profile revealed sodium 147. Calcium 3.9 chloride 1:15 carbon dioxide less than 5 subsequent anion gap 23. Acetone was positive. He was initiated on the DKA protocol. He was transferred to the intensive care unit. He is seen there today in consultation. He is currently awake and alert in no acute distress. He is maintaining good O2 saturations of 200% on room air. He has not had any further nausea and vomiting. He is not tolerating diet just yet. He remains nothing by mouth. He is currently receiving D5 0.45 with 20 of KCl at 150 MLS per hour. He is on a insulin drip at 11.3 units per hour. Most recent lab results reveal a sodium of 142, potassium 4.2, chloride 114, carbon dioxide 13, anion gap 15. Creatinine is 0.48. Blood glucose 162. He remains on Lovenox for DVT prophylaxis. Protonix for GI prophylaxis. On 02/04/2018, the patient remained on an insulin drip at 5 units an hour. The patient came in for an acute DKA. He was treated with an insulin drip and this morning the patient is still has a positive anion gap at 17 with a bicarb level of 15. I decided to continue with the insulin drip until evening and I'm hoping by that time the anion gap will close. Meanwhile the patient is tolerating diet. No nausea. No vomiting. No abdominal pain. No altered mentation. He is also on D5 half-normal with potassium at the rate of 150 mL an hour. No other significant events for the past 24 hours. The patient is quite comfortable in bed. Reevaluated today on 02/05/2018, patient remains on insulin drip, he is also on D5W, sugars are running in the 200s range, his anion gap seems to be correcting nicely, today it is 15. Bicarb is 20 and it was less then 5 upon admission. Potassium is 3.5. BUN is 2 creatinine 0.40. CBC is relatively normal. On 02/06/2018 patient seen in follow-up on medical surgical floor. No acute distress, resting in bed, denies any nausea or vomiting, he is tolerating oral diet. He was transitioned from IV Insulin infusion to Humalog scale, and Levemir. Vital signs are stable, patient is afebrile, today's lab work shows WBC of 6.2, electrolytes are within normal limits, BUN of 3, creatinine of 0.48. Anion gap is 14, carbon dioxide is 23, chloride is within normal limits at 100. Patient denies any dyspnea, denies any chest pain. Lung sounds are clear to auscultation, diminished breath sounds bilaterally. Patient received initial education in the intensive care unit regarding insulin injections and education regarding his insulins. Will probably need further outpatient diabetes education Objective - Vital Signs Vital signs: Vital Signs Temp 98.1 F 02/06/18 06:13 Pulse 96 02/06/18 06:13 Resp 20 02/06/18 06:13 BP 127/67 02/06/18 06:13 Pulse Ox 98 02/06/18 06:13 Intake & Output 02/05/18 02/06/18 02/06/18 18:59 06:59 18:59 Intake Total 1889.483 400 Balance 1889.483 400 Weight 172.1 kg Intake: IV 1100 Dextrose 5% in Water 1, 1000 000 ml @ 50 mls/hr IV . [id number] NAOMIE with Potassium Chloride 40 meq Rx#:[id number] Magnesium Sulfate-D5w Pmx 100 1 gm In Dextrose/Water 1 100ml.bag @ 100 mls/hr IVPB Q1H NAOMIE Rx#: [id number] Intake, IV Titration 309.483 Amount Insulin Regular 100 unit 59.483 In Sodium Chloride 0.9% 100 ml @ 0.1 UNIT/HR 0.1 mls/hr IV .Q24H NAOMIE Rx#: [id number] Potassium Phosphate 10 250 mmol In Sodium Chloride 0 .9% 250 ml @ 125 mls/hr IV ONCE ONE Rx#:[id number] Oral 480 400 Other: Voiding Method Toilet Toilet # Voids 1 1 # Bowel Movements 0 - Exam GENERAL EXAM: Morbidly obese. Alert, comfortable in no apparent distress. HEAD: Normocephalic. EYES: Normal reaction of pupils, equal size. NOSE: Clear with pink turbinates. THROAT: No erythema or exudates. NECK: No masses, no JVD. CHEST: No chest wall deformity. LUNGS: Equal air entry with no crackles, wheeze, rhonchi or dullness. CVS: S1 and S2 normal with no audible murmur, regular rhythm. ABDOMEN: No hepatosplenomegaly, normal bowel sounds, no guarding or rigidity. SPINE: No scoliosis or deformity SKIN: No rashes CENTRAL NERVOUS SYSTEM: No focal deficits, tone is normal in all 4 extremities. EXTREMITIES: There is no peripheral edema. No clubbing, no cyanosis. Peripheral pulses are intact. - Labs CBC & Chem 7: 02/06/18 08:15 02/06/18 08:15 Labs: Abnormal Lab Results - Last 24 Hours (Table) 02/05/18 02/05/18 02/05/18 Range/Units 10:42 11:59 17:14 Sodium 134 L (137-145) mmol/L BUN 2 L (9-20) mg/dL Creatinine 0.43 L (0.66-1.25) mg/dL Glucose 234 H (74-99) mg/dL POC Glucose (mg/dL) 255 H 214 H (75-99) mg/dL Phosphorus 2.4 L (2.5-4.5) mg/dL 02/05/18 02/06/18 02/06/18 Range/Units 21:06 02:38 07:15 Sodium (137-145) mmol/L BUN (9-20) mg/dL Creatinine (0.66-1.25) mg/dL Glucose (74-99) mg/dL POC Glucose (mg/dL) 219 H 170 H 178 H (75-99) mg/dL Phosphorus (2.5-4.5) mg/dL 02/06/18 Range/Units 08:15 Sodium (137-145) mmol/L BUN 3 L (9-20) mg/dL Creatinine 0.48 L (0.66-1.25) mg/dL Glucose 184 H (74-99) mg/dL POC Glucose (mg/dL) (75-99) mg/dL Phosphorus (2.5-4.5) mg/dL Assessment and Plan Plan: Assessment: #1 acute Diabetic ketoacidosis with new onset diabetes mellitus. The insulin infusion has been transitioned to basal insulin in the form of Levemir, and Humalog sliding scale. The patient has an anion gap of 14 on today's lab work, the CO2 is within normal limits #2 Anion gap lactic acidosis secondary to above. Acetone positive. Improved. #3 Hypernatremia secondary to dehydration. Recovered #4 Gastroparesis with nausea and vomiting secondary to above #5 Morbid obesity with a BMI of 50.8 kg/m Recommendation: Patient remains stable on medical surgical floor, vital signs are stable, he is tolerating oral diet, no nausea or vomiting. His insulin infusion has been transferred to basal insulin and Humalog sliding scale. CO2 is 23 on today's lab work, anion gap is 14, the rest of the electrolytes are within normal limits. Increase activity as tolerated. Continue monitoring blood sugars, continue monitoring vitals, and labs. Anticipate discharge home I performed a history & physical examination of the patient and discussed their management with my nurse practitioner, Carlotta Chase. I reviewed the nurse practitioner's note and agree with the documented findings and plan of care. Lung sounds are clear. The findings and the impression was discussed with the patient. I attest to the documentation by the nurse practitioner. Time with Patient: Less than 30
[2018-02-06 12:11] LABS: Glucose,Whole Blood 251 mg/dL (75-99)
--- NOTE | 2018-02-07 14:59 | CDI ---
Last Revision, August 2017 Documentation Clarification Form Date: 02/07/2018 From: Luba Boogie Felicia Montoya, [employer]ating Operator Hours-8:30 am & 5 pm Armida Admit Date: 02/02/2018 5:59:00 PM Patient Name: Mack Vinson Visit Number: [id number] Discharge Date: 02/06/18 ATTENTION: The Clinical Documentation Specialists (CDI) and [facility] Coding Staff appreciate your assistance in clarifying documentation. Please respond to the clarification below the line at the bottom and electronically sign. The CDI & [facility] Coding staff will review the response and follow-up if needed. Please note: Queries are made part of the Legal Health Record. If you have any questions, please contact the author of this message via ITS. Dr. Hussain Millan Documentation states: New diabetic with DKA Abnormal: K results- 3.9, 3.4, 4.4, 3.1, 3.1, 4.2, 2.8, 4.2, 3.1, 3.1, 3.6, 3.8 , 3.5, 3.6, 3.8 Treatment: Potassium phosphate Saline 0.9% 10 mmol 250ml IV Q2H, K-Dur 40 meq PO Clinical significance of diagnostic testing and treatment CANNOT be assumed or coded without physician documentation of significance if any. Please clarify what abnormal laboratory signifies: Hypokalemia Abnormal Lab Value Unable to determine Other, please specify Please continue to document in your progress notes and discharge summary in order to capture severity of illness and risk of mortality. Include clinical findings that support your diagnosis. Agree with Hypokalemia MTDD
== END 2018-02-06 13:58 | disposition home or self-care (01) | DRG 638 ==
LOC: EC 15:45 → 6ICU 17:59 → 4MS4W 02-05 18:26
PROVIDERS: ADMIT Internal Medicine; ATTEND Internal Medicine
DX: E11.10 Type 2 diabetes mellitus with ketoacidosis without coma (principal); E87.0 Hyperosmolality and hypernatremia; Z68.43 Body mass index [BMI] 50.0-59.9, adult; E66.01 Morbid (severe) obesity due to excess calories; K31.84 Gastroparesis; E11.43 Type 2 diabetes mellitus with diabetic autonomic (poly)neuropathy; E87.6 Hypokalemia; D72.829 Elevated white blood cell count, unspecified; E86.0 Dehydration; Z71.3 Dietary counseling and surveillance; K59.00 Constipation, unspecified; Z83.3 Family history of diabetes mellitus; Z88.0 Allergy status to penicillin; Z82.49 Family history of ischemic heart disease and other diseases of the circulatory system
CPT/HCPCS: 36415; 80048; 80051; 80053; 81001; 82009; 82565; 82803; 82947; 83036; 83605; 83735; 83930; 84100; 84520; 85025; 96360; 96365; 96366; 96375; 99285